=== PATIENT | female | born 1950 | race Caucasian/White ===

== ENCOUNTER → 2016-03-30 | Outpatient (CLI) | payer MEDICARE ==
--- NOTE | 2016-03-30 21:29 | PN ---
DATE OF SERVICE: 03/30/2016 This patient is a 66-year-old lady who has been followed in the sleep center for treatment of obstructive sleep apnea/hypopnea syndrome. Patient is on treatment with CPAP every night. I checked her CPAP unit; usage is 30 out of 30 nights for more than 4 hours. CPAP pressure is 12 cm of water. Patient's weight has increased from 274 pounds during previous titration up to 293 pounds today, and she reports that she has awakenings from sleep about 4 times without nocturia; that has increased over the last year. [place] Sleepiness Scale, though, is 2. MEDICATIONS: 1. Atenolol. 2. Losartan. 3. Simvastatin. 4. Topiramate. 5. ( ) 6. Gretchen. 7. Mucinex. 8. Ibuprofen. During physical exam, patient without distress. VITAL SIGNS: BP 131/66, HR 54, RR 16. Height 5 feet 4 inches. Weight 293. BMI 50. Neck 16-1/4 inches in circumference. Temperature 97.6. Oxygen saturation at room air 97%. HEENT: PERRLA, EOMI. Evaluation of oropharynx showed tongue protrudes midline; low position of soft palate. NECK: Supple. No JVD. Thyroid is not palpable. LUNGS: Clear to percussion and to auscultation. Good air exchange. No wheezing or rhonchi. HEART: S1, S2 regular. No murmurs, gallops or rubs. ABDOMEN: Obese. EXTREMITIES: No clubbing or cyanosis. INDUSTRIAL DESIGNER: Awake, alert, and oriented x3. Cranial nerves 2 to 7 intact. There is no fasciculation or atrophy noted. No focal deficits observed. IMPRESSION: 1. Obstructive sleep apnea/hypopnea syndrome. Patient demonstrated 100% compliance with treatment but has about 4 awakenings from sleep while using her CPAP at the pressure of 12 cm of water. I reviewed results of her previous titration. Patient continued to have mild abnormalities of respiration during the titration. 2. Obesity. Patient's weight has increased by around 20 pounds since previous sleep study. 3. Hypertension. 4. Asthma. 5. Acid reflux. 6. Hyperlipidemia. 7. Migraines better, but still patient has some episodes. 8. Status post total hysterectomy. 9. Status post cholecystectomy. 10. Status post bilateral total knee replacement. PLAN: 1. Repeat CPAP titration for evaluation of patient's breathing, for reevaluation of CPAP pressure at the present time. Patient's weight has increased and she has developed significantly more multiple awakenings from sleep. 2. Losing weight. 3. Sleep hygiene with regular time in bed for at least 8 hours. 4. No driving if feeling any sleepiness. 5. Prescription for all necessary CPAP supplies. Thank you very much for allowing me to participate in the management of your patient. Sincerely, Vasquez Burden MD, PhD, FAASM. Diplomat of [place] Board of Sleep Medicine, Sleep Medicine Board by [place] [employer] Specialities, [place] Board of Internal Medicine
== END | disposition home or self-care (01) ==
LOC: SLEEP 16:33
PROVIDERS: ATTEND Internal Medicine
DX: G47.33 Obstructive sleep apnea (adult) (pediatric) (principal); E66.9 Obesity, unspecified; Z68.43 Body mass index [BMI] 50.0-59.9, adult; I10 Essential (primary) hypertension; J45.909 Unspecified asthma, uncomplicated; K21.9 Gastro-esophageal reflux disease without esophagitis; E78.5 Hyperlipidemia, unspecified; G43.909 Migraine, unspecified, not intractable, without status migrainosus; Z98.890 Other specified postprocedural states; Z96.653 Presence of artificial knee joint, bilateral; Z79.899 Other long term (current) drug therapy

== ENCOUNTER → 2016-08-24 | Outpatient (CLI) | payer MEDICARE ==
--- NOTE | 2016-08-24 18:43 | PN ---
DATE OF SERVICE: 08/24/16 66 year old lady has been followed in the sleep center for treatment of obstructive sleep apnea/hypopnea syndrome. The patient is on treatment with CPAP for close to five years. Last titration done several months ago showed preferable pressure for the patient is 14 cm water. Presently, the patient is still on treatment with CPAP at the pressure of 12 cm water and with this regimen she wakes up several times during the night. I checked her CPAP unit. It showed usage 30 out of 30 nights for more than four hours, Average use is 7.5 hours. [place] sleep scale today is 7. MEDICATIONS: 1. Atenolol. 2. Losartan. 3. Simvastatin. 4. ( ). 5. ( ). 6. Furosemide. 7. Gretchen. 8. Mucinex. 9. Ibuprofen. During physical exam, the patient in no distress. BP 140/64. HR 54, RR 16, weight 269. Temp 98.1, oxygen saturation on room air 97%. Oropharynx moderately to extremely low position of soft palate. NECK: Supple. No JVD. Thyroid is not palpable. LUNGS: Clear to auscultation and percussion. Good air exchange. No wheezing or rhonchi. HEART: S1, S2 regular. No murmurs, no gallops or rubs. ABDOMEN: Obese, soft and nontender. Bowel sounds are present. No organomegaly appreciated. EXTREMITIES: No clubbing, or cyanosis. AIRFLIGHT ATTENDANTS SUPERVISOR: Awake, alert and oriented times three. Cranial nerves 2 thru 7 intact. There is no fasciculation or atrophy noted. No focal deficits observed. IMPRESSION: 1. Obstructive sleep apnea, hypopnea syndrome, the patient demonstrated 100% compliance with treatment benefitting from treatment. 2. Obesity. 3. Hypertension. 4. Asthma. 5. Acid reflux. 6. Hyperlipidemia. 7. Episodes of migraines. 8. Status post total hysterectomy. 9. Status post cholecystectomy. 10. Status bilateral knee replacement. PLAN: 1. I adjusted pressure in the CPAP unit up to 14 cm of water. 2. The patient will continue to use her equipment every night for the whole night. 3. Losing weight. 4. Sleep hygiene with regular time in bed for at least 8 hours. 5. No driving if feels any sleepiness. 6. Follow up visit in six months. At that time, we will check possibility for the patient for the patient to get new CPAP unit. 7. Prescription for all necessary CPAP supplies. Thank you very much for allowing me to participate in the management of your patient. Sincerely, Vasquez Burden MD, PhD, FAASM Diplomat of [place] Board of Sleep Medicine Sleep Medicine Board by [place] Board of Medical Specialties [place] Board of Internal Medicine Side Stapler of [facility] [place] [facility]
== END ==
LOC: SLEEP 16:44
PROVIDERS: ATTEND Internal Medicine
DX: G47.33 Obstructive sleep apnea (adult) (pediatric) (principal); E66.9 Obesity, unspecified; I10 Essential (primary) hypertension; J45.909 Unspecified asthma, uncomplicated; K21.9 Gastro-esophageal reflux disease without esophagitis; E78.5 Hyperlipidemia, unspecified; G43.909 Migraine, unspecified, not intractable, without status migrainosus; Z90.710 Acquired absence of both cervix and uterus; Z90.49 Acquired absence of other specified parts of digestive tract; Z96.653 Presence of artificial knee joint, bilateral; Z79.1 Long term (current) use of non-steroidal anti-inflammatories (NSAID); Z79.899 Other long term (current) drug therapy

== ENCOUNTER 2016-09-13 08:11 | Day surgery (SDC) | payer MEDICARE ==
[2016-09-07 15:57] VITALS: BMI 44.2
[~2016-09-13 08:11] MED LIST: LACTATED RINGERS 1,000 ML IV SCH; LIDOCAINE 1% 20 ML VIAL (10MG/ML) FOR IV START INTRADERMA PRN
[2016-09-13 08:37] VITALS: TEMP 98.2
[2016-09-13] MEDS ORDERED: PROPOFOL 10 MG/ML 20 ML VIAL IV ONE (09:05)
--- NOTE | 2016-09-13 09:19 | P.PCN ---
Date of Procedure: 09/13/16 Preoperative Diagnosis: Postoperative Diagnosis: Procedure(s) Performed: BRIEF HISTORY: Patient is a 66-year-old pleasant white female, scheduled for an elective colonoscopy as a part of evaluation of intermittent rectal bleeding. PROCEDURE PERFORMED: Colonoscopy. PREOPERATIVE DIAGNOSIS: Intermittent rectal bleeding. IV sedation per Anesthesia. PROCEDURE: After informed consent was obtained, the patient, was brought into the endoscopy unit. IV sedation was administered by Anesthesia under continuous monitoring. Digital rectal examination was normal. Initially the Olympus CF- 160 flexible video colonoscope was then inserted in the rectum, gradually advanced into the cecum without any difficulty. Careful examination was performed as the scope was gradually being withdrawn. Ileocecal valve and the appendiceal orifice were visualized and appeared normal. Prep was excellent. Mucosa of the cecum, ascending colon, transverse colon, descending colon, sigmoid colon, and rectum appeared normal. Retroflexion was performed in the rectum and small internal hemorrhoids were seen. The patient tolerated the procedure well. IMPRESSION: Normal-appearing colon from rectum to cecum with no evidence of colorectal neoplasia. Small internal hemorrhoids. RECOMMENDATIONS: Findings of this examination were discussed with the patient as well as her family. She was advised to have a repeat screening colonoscopy in 10 years. Implants: Indications for Procedure: Operative Findings: Description of Procedure:
[2016-09-13 09:26] VITALS: RESP 16
[2016-09-13 09:46] VITALS: BP 135/67; PULSE 55
== END 2016-09-13 09:58 | disposition home or self-care (01) ==
LOC: ORWHC2ENDO 08:11
PROVIDERS: ATTEND Internal Medicine Gastroenterology
DX: K64.8 Other hemorrhoids (principal); Z87.19 Personal history of other diseases of the digestive system; Z86.010 Personal history of colon polyps; I10 Essential (primary) hypertension; E78.5 Hyperlipidemia, unspecified; K21.9 Gastro-esophageal reflux disease without esophagitis; E66.01 Morbid (severe) obesity due to excess calories; Z79.82 Long term (current) use of aspirin; Z79.899 Other long term (current) drug therapy; Z88.2 Allergy status to sulfonamides; Z91.09 Other allergy status, other than to drugs and biological substances
CPT/HCPCS: 45378; J2704

== ENCOUNTER → 2017-02-27 | Outpatient (CLI) | payer MEDICARE ==
--- NOTE | 2017-02-28 10:35 | MM ---
Reason for exam: screening (asymptomatic). Last mammogram was performed 1 year and 1 month ago. History: Patient is postmenopausal. Cyst aspiration of the left breast. Excisional biopsy of the right breast. Took estrogen for 20 years 1 month. Physical Findings: A clinical breast exam by your physician is recommended on an annual basis and results should be correlated with mammographic findings. MG Screening Mammo w CAD Bilateral CC, MLO, and XCCL view(s) were taken. Prior study comparison: January 27, 2016, bilateral MG screening mammo w CAD. January 01, 2015, bilateral MG screening mammo w CAD. There is chronic nodularity bilaterally. No significant changes when compared with prior studies. ASSESSMENT: Benign, BI-RAD 2 RECOMMENDATION: Routine screening mammogram of both breasts in 1 year.
== END | disposition home or self-care (01) ==
LOC: RADMAMWWP 08:13
PROVIDERS: ATTEND Family Medicine
DX: Z12.31 Encounter for screening mammogram for malignant neoplasm of breast (principal)
CPT/HCPCS: 77067

== ENCOUNTER → 2017-03-01 | Outpatient (CLI) | payer MEDICARE ==
--- NOTE | 2017-03-01 11:14 | PN ---
PROGRESS NOTE FOLLOW-UP VISIT DATE OF SERVICE: 03/01/2017 DATE OF SERVICE: A 66-year-old lady has been followed in sleep center for treatment of obstructive sleep apnea-hypopnea syndrome. Patient continued to use her CPAP equipment every night for the whole night. Last time I increased pressure in the machine from 12 cm of water up to 14 cm of water because patient had some awakenings in the middle of the night. The patient still continued to wake up in the middle of the night and feels dryness in her mouth. She is using [employer] pillow mask which included a chin strap. I checked her CPAP unit CPAP pressure is 14 cm of water. Usage is every night more than 4 hours, average 7.42 minutes. Apnea-hypopnea index only 1.5, which is perfect. At the same time, leak from the mask for the last month is significant 44.9 L/minute according to reading from the machine. I checked the fitting of the mask and it looks like that it fits pretty well and this is nasal pillows, which usually not make any leak. Again, this mask has chin strap included subsequently supposed to keep patient's mouth close, but maybe she still opens her mouth during the night even with the chin strap. [place] Sleepiness Scale today is only 2. MEDICATIONS: Atenolol, losartan, simvastatin, furosemide, Gretchen, Mucinex, Ibuprofen, topiramate. PHYSICAL EXAM: During physical exam, patient in no distress. VITAL SIGNS: BP 139/57, HR 54, RR 16, height 5 feet 3 inches, weight 253, BMI 44.8. The patient lost about 16 pounds since previous visit. Temperature 97.7, oxygen saturation room air 94%. HEENT: PERRLA. EOMI. Oropharynx low position of soft palate. NECK: Supple, no JVD. Thyroid is not palpable. LUNGS: Clear to percussion and to auscultation. Good air exchange. No wheezing or rhonchi. HEART: S1, S2 regular. No murmurs, gallops, or rubs. ABDOMEN: Obese. EXTREMITIES: No clubbing or cyanosis. PUBLIC HEALTH SPECIALIST: Awake, alert, and oriented X3. Cranial nerves 2 to 7 intact. There is no fasciculation or atrophy. noted. No focal deficits observed. IMPRESSION: 1. Obstructive sleep apnea-hypopnea syndrome. The patient demonstrated 100% compliance with treatment benefitting from treatment. She feels dryness in her mouth during sleep and sometimes wakes up from sleep. Normal apnea-hypopnea index with CPAP. 2. Hypertension. 3. Obesity. 4. Asthma. 5. Acid reflux. 6. Hyperlipidemia. 7. History of episodes of migraine. 8. Status post total hysterectomy. 9. Status post cholecystectomy. 10.Status post bilateral knee replacement. PLAN: 1. I decreased pressure in the CPAP unit down to 11 cm of water because patient lost weight. 2. She will continue to use CPAP equipment every night for the whole night. 3. Continue losing weight. 4. Sleep hygiene with regular time in bed for at least 8 hours. 5. No driving if feeling any sleepiness. Thank you very much for allowing me to participate in management of your patient. Sincerely, Vasquez Burden MD, PhD, FAASM Diplomat of [place] Board of Medical Specialties [place] Board of Internal Medicine Hot Tar Roofer of [facility] [place] MMODL / LAURIEN: [id number] /
== END | disposition home or self-care (01) ==
LOC: SLEEP 09:51
PROVIDERS: ATTEND Internal Medicine
DX: G47.33 Obstructive sleep apnea (adult) (pediatric) (principal); I10 Essential (primary) hypertension; E66.9 Obesity, unspecified; J45.909 Unspecified asthma, uncomplicated; K21.9 Gastro-esophageal reflux disease without esophagitis; E78.5 Hyperlipidemia, unspecified; Z90.710 Acquired absence of both cervix and uterus; Z79.1 Long term (current) use of non-steroidal anti-inflammatories (NSAID); Z99.89 Dependence on other enabling machines and devices; Z68.41 Body mass index [BMI] 40.0-44.9, adult; Z90.49 Acquired absence of other specified parts of digestive tract; Z79.899 Other long term (current) drug therapy; Z96.653 Presence of artificial knee joint, bilateral; Z86.69 Personal history of other diseases of the nervous system and sense organs

== ENCOUNTER → 2017-08-23 | Outpatient (CLI) | payer MEDICARE ==
--- NOTE | 2017-08-23 12:24 | SFUN ---
SLEEP CENTER FOLLOW UP NOTE DATE OF SERVICE: 08/23/2017 This 67-year-old lady had been followed in sleep center for treatment of obstructive sleep apnea-hypopnea syndrome. About 5 weeks ago patient received her new CPAP unit and she continued to successfully use her CPAP equipment every night without significant problems. No problems related to humidity, mask fitting or pressure. Today is her first visit after she received her new machine. I checked her CPAP unit. CPAP pressure is 14 cm of water. Usage is 100% of the time more than 4 hours. Average usage is 7.5 hours. Leak is 28 L/minute which is acceptable. Apnea-hypopnea index only 0.6, which is totally perfect. MEDICATIONS: Atenolol, losartan, simvastatin, furosemide, Gretchen, Mucinex, ibuprofen, topiramate. PHYSICAL EXAMINATION: During physical exam, patient in no distress. VITAL SIGNS: BP 141/54, HR 48, RR 17, weight 263.4, temp 98.5, oxygen saturation AT room air 98%. HEENT: PERRLA, EOMI. Oropharynx low position of soft palate. NECK: Supple, no JVD. Thyroid is not palpable. LUNGS: Clear to percussion and to auscultation. Good air exchange. No wheezing or rhonchi. HEART: S1, S2 regular. No murmurs, gallops, or rubs. ABDOMEN: Obese. EXTREMITIES: No clubbing or cyanosis. AMERICAN HISTORY TEACHER: Awake, alert, and oriented X3. Cranial nerves 2 to 7 intact. There is no fasciculation or atrophy. noted. No focal deficits observed. IMPRESSION: 1. Obstructive sleep apnea-hypopnea syndrome, on full control with CPAP. Patient demonstrated 100% compliance with treatment benefitting from treatment. 2. Hypertension. 3. Obesity. 4. Asthma. 5. Acid reflux. 6. Hyperlipidemia. 7. History of episodes of migraine. 8. Status post hysterectomy. 9. Status post cholecystectomy. 10.Status post bilateral knee replacement. PLAN: 1. Patient will continue to use her CPAP equipment tonight for the whole night. 2. Prescription for all necessary CPAP supplies including mask, tube, filters. 3. I will explain to the patient how to adjust humidity in the new CPAP unit if it will be necessary for her. 4. Losing weight. 5. Followup visit in about 10 months or earlier if patient has any problems. Thank you very much for allowing me to participate in management of your patient. Sincerely, Vasquez Burden MD, PhD, FAASM Diplomat of [place] Board of Medical Specialties [place] Board of Internal Medicine C[employer]acer [facility] [place] LOLITA / GENET: [id number] /
== END | disposition home or self-care (01) ==
LOC: SLEEP 11:17
PROVIDERS: ATTEND Internal Medicine
DX: G47.33 Obstructive sleep apnea (adult) (pediatric) (principal); I10 Essential (primary) hypertension; E66.9 Obesity, unspecified; J45.909 Unspecified asthma, uncomplicated; K21.9 Gastro-esophageal reflux disease without esophagitis; Z90.49 Acquired absence of other specified parts of digestive tract; Z96.653 Presence of artificial knee joint, bilateral; Z90.710 Acquired absence of both cervix and uterus; Z86.69 Personal history of other diseases of the nervous system and sense organs; Z99.89 Dependence on other enabling machines and devices; Z79.899 Other long term (current) drug therapy; Z79.1 Long term (current) use of non-steroidal anti-inflammatories (NSAID)

== ENCOUNTER → 2018-03-26 | Outpatient (CLI) | payer MEDICARE ==
--- NOTE | 2018-03-27 09:46 | MM ---
Reason for exam: screening (asymptomatic). Last mammogram was performed 1 year and 1 month ago. History: Patient is postmenopausal. Cyst aspiration of the left breast. Excisional biopsy of the right breast. Took estrogen for 20 years 1 month. Physical Findings: A clinical breast exam by your physician is recommended on an annual basis and results should be correlated with mammographic findings. MG 3D Screening Mammo W/Cad Bilateral CC and MLO view(s) were taken. Prior study comparison: February 27, 2017, bilateral MG screening mammo w CAD. January 27, 2016, bilateral MG screening mammo w CAD. There are scattered fibroglandular densities. There is chronic nodularity in the left breast. No significant changes when compared with prior studies. ASSESSMENT: Benign, BI-RAD 2 RECOMMENDATION: Routine screening mammogram of both breasts in 1 year.
== END | disposition home or self-care (01) ==
LOC: RADMAMWWP 07:33
PROVIDERS: ATTEND Family Medicine
DX: Z12.31 Encounter for screening mammogram for malignant neoplasm of breast (principal)
CPT/HCPCS: 77063; 77067

== ENCOUNTER → 2018-07-25 | Outpatient (CLI) | payer MEDICARE ==
--- NOTE | 2018-07-25 18:16 | PN ---
PROGRESS NOTE DATE OF SERVICE: 07/25/2018 This patient is a 68-year-old lady who has been followed in Sleep Center for treatment of obstructive sleep apnea-hypopnea syndrome. Patient continues to use CPAP equipment every night for the whole night without any significant problems related to mask fitting, pressure or humidification. [place] Sleepiness Scale today is 1. I checked her CPAP unit. CPAP pressure is 14 cm of water. Usage is 100% of nights for more than 4 hours with average usage 7.8 hours. Leak is 14 L/minute, which is borderline. Apnea-hypopnea index is 0.6, which is absolutely perfect. MEDICATIONS: 1. Losartan. 2. Atenolol. 3. Simvastatin. 4. Furosemide. 5. Gretchen. 6. Ibuprofen. 7. Topiramate. PHYSICAL EXAMINATION: GENERAL: A pleasant patient in no distress. VITAL SIGNS: BP 158/69, HR 56, RR 16, height 5 feet 2-1/2 inches, weight 280 pounds, which is 17 pounds more than during her previous visit. Body mass index 50.3, oxygen saturation at room air 95%. HEENT: PERRLA, EOMI. Evaluation of oropharynx showed tongue protrudes midline. Low position of soft palate. Mallampati III to IV. NECK: Supple. No JVD. Thyroid is not palpable. LUNGS: Clear to percussion and to auscultation. Good air exchange. No wheezing or rhonchi. HEART: S1, S2 regular. No murmurs, gallops or rubs. ABDOMEN: Obese. EXTREMITIES: No clubbing or cyanosis. BOARDING HOUSE COOK: Awake, alert, and oriented X3. Cranial nerves 2 to 7 intact. There is no fasciculation or atrophy. noted. No focal deficits observed. IMPRESSION: 1. Obstructive sleep apnea-hypopnea syndrome, fully controlled with CPAP. Patient demonstrated 100% compliance with treatment, benefitting from treatment. 2. Hypertension. 3. Obesity. Patient's weight has increased compared with her previous visit by 17 pounds. 4. Asthma. 5. Acid reflux. 6. Hyperlipidemia. 7. History of episodes of migraine. No recent episodes. 8. Status post hysterectomy. 9. Status post cholecystectomy. 10.Status post bilateral knee replacement. PLAN: 1. Patient will continue to use CPAP equipment every night. 2. Losing weight. 3. Sleep hygiene with regular time bed for at least 8 hours. 4. No driving if feeling any sleepiness. 5. Prescriptions for all necessary CPAP supplies, including mask, tube, filters. Thank you very much for allowing me to participate in the management of your patient. Sincerely, Vasquez Burden MD, PhD, FAASM Diplomat of [place] Board of Medical Specialties [place] Board of Internal Medicine Boarding Specialist of [facility] [place] MMODL / LAURIEN: [id number] /
== END | disposition home or self-care (01) ==
LOC: SLEEP 16:54
PROVIDERS: ATTEND Internal Medicine
DX: G47.33 Obstructive sleep apnea (adult) (pediatric) (principal); E66.9 Obesity, unspecified; I10 Essential (primary) hypertension; J45.909 Unspecified asthma, uncomplicated; K21.9 Gastro-esophageal reflux disease without esophagitis; E78.5 Hyperlipidemia, unspecified; Z99.89 Dependence on other enabling machines and devices; Z79.899 Other long term (current) drug therapy; Z79.1 Long term (current) use of non-steroidal anti-inflammatories (NSAID); Z86.69 Personal history of other diseases of the nervous system and sense organs; Z90.710 Acquired absence of both cervix and uterus; Z90.49 Acquired absence of other specified parts of digestive tract; Z96.653 Presence of artificial knee joint, bilateral; Z68.43 Body mass index [BMI] 50.0-59.9, adult

== ENCOUNTER → 2019-04-15 | Outpatient (CLI) | payer MEDICARE ==
--- NOTE | 2019-04-16 10:53 | MM ---
Reason for exam: screening (asymptomatic). Last mammogram was performed 1 year and 1 month ago. History: Patient is postmenopausal. Cyst aspiration of the left breast. Excisional biopsy of the right breast. Took estrogen for 20 years 1 month. Physical Findings: A clinical breast exam by your physician is recommended on an annual basis and results should be correlated with mammographic findings. MG 3D Screening Mammo W/Cad Bilateral CC, MLO, and XCCL view(s) were taken. Prior study comparison: March 26, 2018, bilateral MG 3d screening mammo w/cad. February 27, 2017, bilateral MG screening mammo w CAD. There are scattered fibroglandular densities. No suspicious abnormality. Stable left intramammary lymph nodes. No significant changes when compared with prior studies. ASSESSMENT: Negative, BI-RAD 1 RECOMMENDATION: Routine screening mammogram of both breasts in 1 year.
== END | disposition home or self-care (01) ==
LOC: RADMAMWWP 07:10
PROVIDERS: ATTEND Family Medicine
DX: Z12.31 Encounter for screening mammogram for malignant neoplasm of breast (principal)
CPT/HCPCS: 77063; 77067

== ENCOUNTER → 2020-03-01 | Outpatient (CLI) | payer MEDICARE ==
[2020-03-01 09:18] LABS: Basophils % (A) 1 %; Eosinophils # (A) 0.3 k/uL (0-0.7); Eosinophils % (A) 4 %; HCT 41.1 % (34.0-46.0); HGB 13.2 gm/dL (11.4-16.0); Lymphocytes # (A) 2.4 k/uL (1.0-4.8); Lymphocytes % (A) 35 %; MCH 29.8 pg (25.0-35.0); MCHC 32.1 g/dL (31.0-37.0); MCV 92.7 fL (80.0-100.0); Monocytes # (A) 0.3 k/uL (0-1.0); Monocytes % (A) 5 %; Neutrophils # (A) 3.7 k/uL (1.3-7.7); Neutrophils % (A) 54 %; Platelet Count 210 k/uL (150-450); RBC 4.43 m/uL (3.80-5.40); RDW 12.7 % (11.5-15.5); WBC 6.8 k/uL (3.8-10.6)
[2020-03-01 15:38] LABS: African American GFR (CKD) 101.7 (60.0-200.0); Albumin 4.3 g/dL (3.80-4.90); Albumin/Globulin Ratio 2.15 (1.60-3.17); Anion Gap 7.3 mmol/L (4.00-12.00); Calcium 9.2 mg/dL (8.7-10.3); Carbon Dioxide 28.7 mmol/L (21.6-31.8); Chol/HDL Ratio 3.1; LDL Cholesterol,Calculated 105.4 mg/dL (0.0-131.0); Non-African American GFR(CKD) 87.8 (60.0-200.0); Potassium 4.3 mmol/L (3.5-5.5); Total Bilirubin 0.5 mg/dL (0.2-1.2); Total Protein 6.3 g/dL (6.2-8.2); VLDL Calculation 20.6 mg/dL (5.00-40.00)
[2020-03-01 18:46] LABS: Hemoglobin A1C 6.3 % (4.0-6.0)
== END | disposition home or self-care (01) ==
LOC: LABWHC1 08:38
PROVIDERS: ATTEND Family Medicine
DX: E78.5 Hyperlipidemia, unspecified (principal); I10 Essential (primary) hypertension; R73.9 Hyperglycemia, unspecified
CPT/HCPCS: 36415; 80053; 80061; 82550; 83036; 85025

== ENCOUNTER → 2020-05-06 | Outpatient (CLI) | payer MEDICARE ==
--- NOTE | 2020-05-07 11:14 | MM ---
Reason for exam: screening (asymptomatic). Last mammogram was performed 1 year and 1 month ago. History: Patient is postmenopausal. Cyst aspiration of the left breast. Excisional biopsy of the right breast. Took estrogen for 20 years 1 month. Physical Findings: A clinical breast exam by your physician is recommended on an annual basis and results should be correlated with mammographic findings. MG 3D Screening Mammo W/Cad Bilateral CC, MLO, and XCCL view(s) were taken. Prior study comparison: April 15, 2019, bilateral MG 3d screening mammo w/cad. March 26, 2018, bilateral MG 3d screening mammo w/cad. There are scattered fibroglandular densities. There is no discrete abnormality. No significant changes when compared with prior studies. ASSESSMENT: Negative, BI-RAD 1 RECOMMENDATION: Routine screening mammogram of both breasts in 1 year.
== END | disposition home or self-care (01) ==
LOC: RADMAMWWP 09:44
PROVIDERS: ATTEND Family Medicine
DX: Z12.31 Encounter for screening mammogram for malignant neoplasm of breast (principal); Z78.0 Asymptomatic menopausal state
CPT/HCPCS: 77063; 77067

== ENCOUNTER → 2020-09-03 | Outpatient (CLI) | payer MEDICARE ==
[2020-09-03 15:53] LABS: Basophils # (A) 0.05 X 10*3/uL (0.00-0.10); Basophils % (A) 0.6 %; Eosinophils # (A) 0.35 X 10*3/uL (0.04-0.35); Eosinophils % (A) 4.4 %; HCT 41.1 % (37.2-46.3); HGB 12.5 g/dL (12.0-15.0); Lymphocytes # (A) 2.51 X 10*3/uL (0.90-5.00); Lymphocytes % (A) 31.5 %; MCH 29.6 pg (27.0-32.0); MCHC 30.4 g/dL (32.0-37.0); MCV 97.4 fL (80.0-97.0); Mean Platelet Volume 12.6 fL (9.5-12.2); Monocytes # (A) 0.52 X 10*3/uL (0.20-1.00); Monocytes % (A) 6.5 %; Neutrophils # (A) 4.51 X 10*3/uL (1.80-7.70); Neutrophils % (A) 56.6 %; Platelet Count 219 X 10*3/uL (140-440); RBC 4.22 X 10*6/uL (4.10-5.20); RDW 13.3 % (11.5-14.5); WBC 7.97 X 10*3/uL (4.50-10.00)
[2020-09-03 21:11] LABS: % Iron Saturation 16.71 (12.00-45.00); ALT 25 U/L (8-44); AST 23 U/L (13-35); Albumin/Globulin Ratio 1.95 (1.60-3.17); Alkaline Phosphatase 84 U/L (41-126); BUN/Creat Ratio 27.14 Ratio (12.00-20.00); Calcium 9.1 mg/dL (8.7-10.3); Carbon Dioxide 26.4 mmol/L (21.6-31.8); Chloride 109 mmol/L (96-109); Globulin 2.2 g/dL (1.6-3.3); Glucose 116 mg/dL (70-110); Iron 62 ug/dL (50-170); Magnesium 1.8 mg/dL (1.5-2.4); Non-African American GFR(CKD) 87.2 (60.0-200.0); Potassium 4.6 mmol/L (3.5-5.5); Sodium 145 mmol/L (135-145); Total Bilirubin 0.3 mg/dL (0.3-1.2); Total Iron Binding Capacity 371 ug/dL (228-460); Total Protein 6.5 g/dL (6.2-8.2)
[2020-09-03 21:18] LABS: Ferritin 31.3 ng/mL (10.0-291.0)
[2020-09-03 21:32] LABS: Folate, Serum >24.0 ng/mL
== END | disposition home or self-care (01) ==
LOC: LABWHC1 08:12
PROVIDERS: ATTEND Family Medicine
DX: G25.81 Restless legs syndrome (principal)
CPT/HCPCS: 36415; 80053; 82607; 82728; 82746; 83540; 83550; 83735; 85025

== ENCOUNTER → 2020-10-28 | Outpatient (CLI) | payer MEDICARE ==
--- NOTE | 2020-10-28 17:05 | SFUN ---
SLEEP CENTER FOLLOW UP NOTE DATE OF SERVICE: 10/28/2020 This 70-year-old lady has been followed in Sleep Center for treatment of obstructive sleep apnea-hypopnea syndrome. The last time I saw the patient was 2 years ago, and then she did not come because of COVID. She has continued to use her CPAP equipment every night for the whole night. Sometimes she wakes up with a dry mouth and sometimes her mask may move during the night. [place] Sleepiness Scale today is 4, which is normal. I checked her CPAP unit. Pressure is 14 cm of water. Usage is 30/30 nights for more than 4 hours with average usage 7.7 hours per night. Leak is 14 L/minute. Apnea- hypopnea index is only 0.7. RAMP started from 7 cm of water, but the patient feels that it is not enough pressure for her while she is starting the machine. RAMP time is 5 minutes. MEDICATIONS: 1. Albuterol. 2. Aspirin 81 mg. 3. Atenolol 25 mg once a day. 4. Celecoxib 200 mg once a day. 5. Losartan 50 mg once a day. 6. Metformin 1000 mg twice a day. 7. Omeprazole 40 mg once a day. 8. Simvastatin 10 mg once a day. 9. Topiramate 50 mg twice a day. PHYSICAL EXAMINATION: GENERAL: Pleasant patient without distress. VITAL SIGNS: BP 128/76, HR 91, RR 15, height 5 feet 3 inches, weight 290. The patient's weight increased by 10 pounds since previous visit. Body mass index 51.3. Temperature 97.9, oxygen saturation at room air 94%. HEENT: PERRLA, EOMI, evaluation of oropharynx showed tongue protrudes midline. Low position of soft palate; Mallampati III to IV. NECK: Supple, no JVD. Thyroid is not palpable. LUNGS: Clear to percussion and to auscultation. Good air exchange. No wheezing or rhonchi. HEART: S1, S2 regular. No murmurs, gallops, or rubs. ABDOMEN: Obese. EXTREMITIES: No clubbing or cyanosis. MONEY ORDER CLERK: Awake, alert, and oriented X3. Cranial nerves 2 to 7 intact. There is no fasciculation or atrophy. noted. No focal deficits observed. IMPRESSION: 1. Some dryness in the mouth during sleep. Obstructive sleep apnea-hypopnea syndrome. Patient demonstrated 100% compliance with treatment. Normal apnea-hypopnea index on treatment with CPAP. 2. Hypertension. 3. Obesity. Patient's weight increased by 10 pounds. Morbid obesity; BMI 51.3. 4. Asthma. 5. Acid reflux. 6. Hyperlipidemia. 7. History of migraine. Recently occasional episodes. 8. Status post hysterectomy. 9. Status post cholecystectomy. 10.Status post bilateral knee replacement. PLAN: 1. Use the chinstrap to prevent opening the mouth. Prescription for all necessary supplies have been signed and faxed. 2. Patient will continue to use PAP equipment every night for the whole night. 3. Sleep hygiene with regular time in bed for at least 7-1/2 to 8 hours. 4. Precautions related to driving. No driving if feeling sleepiness. 5. I will maintain all necessary prescription for PAP supplies including mask, tube, filters. 6. Watching weight. 7. Follow-up visit in 6 months or earlier if patient has any problems. Thank you very much for allowing me to participate in the management of your patient. Sincerely, Vasquez Burden MD, PhD, FAASM Diplomat of [place] Board of Medical Specialties Sleep Medicine Board of [place] Board of Internal Medicine Hardware Engineer of [facility] [place] MMODL / IJN: [id number] /
== END | disposition home or self-care (01) ==
LOC: SLEEP 11:40
PROVIDERS: ATTEND Internal Medicine
DX: G47.33 Obstructive sleep apnea (adult) (pediatric) (principal); I10 Essential (primary) hypertension; E66.9 Obesity, unspecified; J45.909 Unspecified asthma, uncomplicated; K21.9 Gastro-esophageal reflux disease without esophagitis; E78.5 Hyperlipidemia, unspecified; G43.909 Migraine, unspecified, not intractable, without status migrainosus; Z90.710 Acquired absence of both cervix and uterus; Z96.653 Presence of artificial knee joint, bilateral; Z68.43 Body mass index [BMI] 50.0-59.9, adult

== ENCOUNTER → 2021-05-05 | Outpatient (CLI) | payer MEDICARE ==
--- NOTE | 2021-05-05 15:59 | SFUN ---
SLEEP CENTER FOLLOW UP NOTE DATE OF SERVICE: 05/05/2021 This 71-year-old lady has been followed in Sleep Center for treatment of obstructive sleep apnea-hypopnea syndrome. The patient continues to use her CPAP equipment every night for the whole night. She changes her position during sleep, turning from one side to another side and also she sometimes sleeps on her back. [place] Sleepiness Scale today is 3, which is in normal range. I checked her CPAP unit. Pressure is 14 cm of water. Usage is 100% of nights for more than 4 hours, average 7.5 hours per night. Leak is 23 L/minute, which is borderline. Apnea-hypopnea index is only 0.8, which is absolutely perfect. MEDICATIONS: 1. Atenolol 25 mg once a day. 2. Metformin 1000 mg once a day. 3. Celecoxib 200 mg once a day. 4. Omeprazole 40 mg once a day. 5. Losartan 50 mg once a day. 6. Simvastatin 10 mg once a day. 7. 150 mg once a day. 8. Zyrtec 1 tablet once a day as needed. 9. Aspirin 81 mg once a day. 10.Excedrin for migraines as needed. PHYSICAL EXAMINATION: GENERAL: Pleasant patient in no distress. VITAL SIGNS: BP 123/81, HR 78, RR 18, weight 291.2 pounds, which is about the same as during the previous visit. Height 5 feet 3 inches, temperature 97.0, oxygen saturation at room air 96%. HEENT: PERRLA, EOMI, evaluation of oropharynx showed tongue protrudes midline. Low position of soft palate; Mallampati III to IV. NECK: Supple, no JVD. Thyroid is not palpable. LUNGS: Clear to percussion and to auscultation. Good air exchange. No wheezing or rhonchi. HEART: S1, S2 regular. No murmurs, gallops, or rubs. ABDOMEN: Obese. EXTREMITIES: No clubbing or cyanosis. LINUX PROGRAMMER: Awake, alert, and oriented X3. Cranial nerves 2 to 7 intact. There is no fasciculation or atrophy. noted. No focal deficits observed. IMPRESSION: 1. Obstructive sleep apnea-hypopnea syndrome. Patient demonstrated great compliance with treatment, benefitting from treatment. Normal respiration on CPAP. 2. Hypertension. 3. Obesity. 4. Asthma. 5. Acid reflux. 6. Hyperlipidemia. 7. History of migraine. No recent episodes. One episode after booster dose for COVID- 19 vaccination. 8. Status post hysterectomy. 9. Status post cholecystectomy. 10.Status post bilateral knee replacement. 11.Status post bilateral cataract surgery in 2020. PLAN: 1. Patient will continue to use PAP equipment every night for the whole night. 2. Sleep hygiene with regular time in bed for at least 7-1/2 to 8 hours. 3. Precautions related to driving. No driving if feeling sleepiness. 4. I will maintain all necessary prescription for PAP supplies, including mask, tube, filters. 5. Watching weight. 6. Follow-up visit in 6 months or earlier if patient has any problems. Thank you very much for allowing me to participate in the management of your patient. Sincerely, Vasquez Burden MD, PhD, FAASM Diplomat of [place] [employer] Sleep Medicine Board of [place] [employer] Chief Cruiser [facility] [place] MMODL / LAURIEN: [id number] /
== END | disposition home or self-care (01) ==
LOC: SLEEP 11:43
PROVIDERS: ATTEND Internal Medicine
DX: G47.33 Obstructive sleep apnea (adult) (pediatric) (principal); I10 Essential (primary) hypertension; E66.9 Obesity, unspecified; J45.909 Unspecified asthma, uncomplicated; K21.9 Gastro-esophageal reflux disease without esophagitis; E78.5 Hyperlipidemia, unspecified; Z86.69 Personal history of other diseases of the nervous system and sense organs; Z90.49 Acquired absence of other specified parts of digestive tract; Z98.890 Other specified postprocedural states; Z96.653 Presence of artificial knee joint, bilateral

== ENCOUNTER → 2021-07-13 | Outpatient (CLI) | payer MEDICARE ==
--- NOTE | 2021-07-14 12:01 | MM ---
Reason for Exam: Screening (asymptomatic). Last mammogram was performed 1 year(s) and 3 month(s) ago. Patient History: Menarche at age 11. First Full-Term at age 24. Left ovary removed at age 34. Right ovary removed at age 34. Hysterectomy at age 34. Postmenopausal. Estrogen for 20 years, 1 month. Cyst Aspiration on the Left side. Excisional Biopsy on the Right side. Risk Values: Krystyna 5 year model risk: 2.3%. NCI Lifetime model risk: 6.0%. Prior Study Comparison: 03/26/2018 Bilateral Screening Mammogram, [facility]. 04/15/2019 Bilateral Screening Mammogram, [facility]. 05/06/2020 Bilateral Screening Mammogram, [facility]. Tissue Density: There are scattered fibroglandular densities. Findings: Analyzed By CAD. Stable tiny chronic nodularity upper outer aspect left breast. A few scattered benign appearing punctate calcifications bilaterally are redemonstrated. There is no suspicious group of microcalcifications or new suspicious mass in either breast. Overall Assessment: Benign, BI-RAD 2 Management: Screening Mammogram of both breasts in 1 year. A clinical breast exam by your physician is recommended on an annual basis and results should be correlated with mammographic findings. Electronically signed and approved by: Kavin Tuttle M.D.
== END | disposition home or self-care (01) ==
LOC: RADMAMWWP 07:40
PROVIDERS: ATTEND Family Medicine
DX: Z12.31 Encounter for screening mammogram for malignant neoplasm of breast (principal)
CPT/HCPCS: 77063; 77067

== ENCOUNTER 2021-08-29 08:38 | Emergency (ER) | payer MEDICARE ==
--- NOTE | 2021-08-29 09:44 | CT ---
EXAMINATION TYPE: CT chest wo con CT DLP: 809.5 mGycm, Automated exposure control for dose reduction was used. DATE OF EXAM: 08/29/2021 9:34 AM COMPARISON: None CLINICAL INDICATION:Female, 71 years old with history of fall, trauma, sob; TECHNIQUE: Multiple axial images were obtained through the chest. Contrast used: none. Oral contrast used: none. FINDINGS: LUNGS/ PLEURA: Respiratory motion artifact is present. No evidence for focal consolidation, pneumotho rax or pleural effusion. AIRWAY: Patent and unremarkable.. HEART: Mildly enlarged for size with mild atherosclerosis of the arterial vasculature and aortic valv e leaflet calcifications. MEDIASTINUM: No gross evidence of adenopathy. VASCULATURE: No aortic aneurysm. The pulmonary trunk is dilated up to 35 mm. MUSCULOSKELETAL: No evidence for acute fracture. There is multilevel disc degeneration changes seen t hroughout the spine. SOFT TISSUES/LYMPH NODES: Unremarkable. LOWER NECK: No significant findings. UPPER ABDOMEN: Fatty hypertrophy changes of the pancreatic parenchyma. Gallbladder surgically absent. IMPRESSION: 1. No evidence for acute process within the chest. 2. Pulmonary hypertension suggested. 3. No evidence for fracture. 4. Mild cardiomegaly. 5. Mild Aortic valve leaflet calcifications and coronary artery atherosclerosis.
--- NOTE | 2021-08-29 10:00 | ED ---
SOB HPI - General Chief Complaint: Shortness of Breath Stated Complaint: Fell on chest,SOB Time Seen by Provider: 08/29/21 08:51 Source: patient, RN notes reviewed Mode of arrival: ambulatory Limitations: no limitations - History of Present Illness Initial Comments: This a 71-year-old female presents emergency Department with chief complaint of fall, rib pain. Patient states that she fell Sunday night. Patient states that she fell on the ground into her ribs. Patient states she was able to finally get up off the ground denies any head injury no loss conscious denies any neck pain. Patient complains of rib pain bilaterally states it hurts with any sort of movement, deep inspiration. She states that the pain takes her breath away. She denies palpitations no nausea vomiting no abdominal pain. Patient does have bruising over her breast. - Related Data Home Medications Medication Instructions Recorded Confirmed Aspirin [Adult Low Dose Aspirin EC] 162 mg PO HS 09/07/16 09/13/16 Calcium Carbonate [Calcium] 600 mg PO BID 09/07/16 09/13/16 Cetirizine HCl [Zyrtec] 10 mg PO 1000 09/07/16 09/13/16 Cholecalciferol [Vitamin D3] 10,000 unit PO DAILY 09/07/16 09/13/16 Fish Oil/Dha/Epa [Fish Oil 1,200 2 each PO QAM 09/07/16 09/13/16 mg Fish Oil] Furosemide [Lasix] 40 mg PO DAILY PRN 09/07/16 09/13/16 Ibuprofen 800 mg PO QAM PRN 09/07/16 09/13/16 Ketotifen Fumarate [Zaditor] 1 drop BOTH EYES DAILY PRN 09/07/16 09/13/16 Losartan [Cozaar] 50 mg PO W/SUPPER 09/07/16 09/13/16 Magnesium Oxide [Mag-Ox] 250 mg PO BID 09/07/16 09/13/16 Multivit-Min/FA/Lycopen/Lutein 1 each PO QAM 09/07/16 09/13/16 [Centrum Silver Tablet] Omeprazole 40 mg PO QAM 09/07/16 09/13/16 Risedronate Sodium [Actonel] 150 mg PO QMONTH 09/07/16 09/13/16 Rizatriptan Benzoate [Maxalt] 10 mg PO DAILY PRN 09/07/16 09/13/16 Simvastatin [Zocor] 10 mg PO W/SUPPER 09/07/16 09/13/16 Topiramate 50 mg PO QAM 09/07/16 09/13/16 Topiramate 100 mg PO 2200 09/07/16 09/13/16 Ubidecarenone [Co Q-10] 100 mg PO QAM 09/07/16 09/13/16 atenoloL [Tenormin] 25 mg PO DAILY 09/07/16 09/13/16 flaxseed oiL [[place]-3 Flaxseed Oil] 1,200 mg PO QAM 09/07/16 09/13/16 Allergies Allergy/AdvReac Type Severity Reaction Status Date / Time acetaminophen [From Lortab] Allergy "fuzzy,out Verified 08/29/21 08:47 of focus" hydrocodone [From Lortab] Allergy "fuzzy,out Verified 08/29/21 08:47 of focus" Sulfa (Sulfonamide Allergy "fuzzy, Verified 08/29/21 08:47 Antibiotics) out of focus" bandaids Allergy peels skin Uncoded 08/29/21 08:47 off Review of Systems ROS Statement: Those systems with pertinent positive or pertinent negative responses have been documented in the HPI. ROS Other: All systems not noted in ROS Statement are negative. Past Medical History Past Medical History: Asthma, GERD/Reflux, Hyperlipidemia, Hypertension, Rheumatoid Arthritis (RA) Additional Past Medical History / Comment(s): hypoglycemia Past Surgical History: Cholecystectomy, Hysterectomy, Joint Replacement, Tonsillectomy Past Psychological History: No Psychological Hx Reported Smoking Status: Former smoker Past Alcohol Use History: None Reported Past Drug Use History: None Reported General Exam Limitations: no limitations General appearance: alert, in no apparent distress Head exam: Present: atraumatic, normocephalic, normal inspection Eye exam: Present: normal appearance, PERRL, EOMI. Absent: scleral icterus, conjunctival injection, periorbital swelling ENT exam: Present: normal exam, normal oropharynx, mucous membranes moist Neck exam: Present: normal inspection, full ROM. Absent: tenderness, meningismus, lymphadenopathy Respiratory exam: Present: normal lung sounds bilaterally, chest wall tenderness (Ecchymosis noted). Absent: respiratory distress, wheezes, rales, rhonchi, stridor Cardiovascular Exam: Present: regular rate, normal rhythm, normal heart sounds. Absent: systolic murmur, diastolic murmur, rubs, gallop, clicks GI/Abdominal exam: Present: soft, normal bowel sounds. Absent: distended, tenderness, guarding, rebound, rigid Extremities exam: Present: normal inspection, full ROM, normal capillary refill. Absent: tenderness, pedal edema, joint swelling, calf tenderness Back exam: Present: full ROM, paraspinal tenderness. Absent: CVA tenderness (R), CVA tenderness (L), vertebral tenderness Neurological exam: Present: alert, oriented X3, CN II-XII intact, reflexes normal. Absent: motor sensory deficit Course Vital Signs 08/29/21 08:41 Temperature 98.4 F Pulse Rate 105 H Respiratory 24 Rate Blood Pressure 148/90 O2 Sat by Pulse 98 Oximetry Medical Decision Making - Medical Decision Making CT was performed to rule out pneumothorax, diarrhea fractures. Patient CT is negative. Patient will be discharged with Tylenol codeine for pain control. Vitals are stable. Return parameters discussed. Disposition Clinical Impression: Contusion, chest wall, Bilateral contusion of ribs Disposition: HOME SELF-CARE Condition: Stable Instructions (If sedation given, give patient instructions): Rib Contusion (ED) Additional Instructions: Please return to the Emergency Department if symptoms worsen or any other concerns. Is patient prescribed a controlled substance at d/c from ED?: No Referrals: Jose Ortega MD [Primary Care Provider] - 1-2 days Time of Disposition: 10:26
[2021-08-29] MEDS ORDERED: ACET/COD 300 MG/30 MG STARTER PACK 6 TAB BTL PO STA (10:24)
[2021-08-29 10:34] VITALS: BP 136/86; PULSE 61; RESP 18; TEMP 98
== END 2021-08-29 10:33 | disposition home or self-care (01) ==
LOC: EC 08:38
DX: S20.213A Contusion of bilateral front wall of thorax, initial encounter (principal); K21.9 Gastro-esophageal reflux disease without esophagitis; I10 Essential (primary) hypertension; J45.909 Unspecified asthma, uncomplicated; Z79.899 Other long term (current) drug therapy; Z88.8 Allergy status to other drugs, medicaments and biological substances; Z88.2 Allergy status to sulfonamides; Z91.018 Allergy to other foods; Z88.5 Allergy status to narcotic agent; Z88.6 Allergy status to analgesic agent; Z79.82 Long term (current) use of aspirin; W19.XXXA Unspecified fall, initial encounter
CPT/HCPCS: 71250; 93005; 99284

== ENCOUNTER 2021-11-10 05:56 | Day surgery (SDC) | payer MEDICARE ==
[2021-11-08 15:33] VITALS: BMI 46.5
[~2021-11-10 05:56] MED LIST changes: +LIDOCAINE 1% (10MG/ML) FOR IV START INTRADERMA PRN; -LIDOCAINE 1% 20 ML VIAL (10MG/ML) FOR IV START INTRADERMA PRN; +SODIUM CHLORIDE 0.9% 1,000 ML IV SCH
[2021-11-10] MEDS ORDERED: APIXABAN 5 MG TAB PO SCH (06:11)
[2021-11-10] MEDS ORDERED: AMIODARONE 200 MG TAB PO STA (06:13)
[2021-11-10] MEDS ORDERED: METOPROLOL TARTRATE 50 MG TAB PO STA (06:13)
[2021-11-10] MEDS ORDERED: SODIUM CHLORIDE 0.9% 500 ML IV ONE (06:15)
[2021-11-10 06:17] VITALS: TEMP 97.6
[2021-11-10 06:35] LABS: Glucose,Whole Blood 108 mg/dL (70-110)
[2021-11-10 07:14] LABS: African American GFR (CKD) >90 (>60 ml/min/1.73 sqM); Anion Gap 11 mmol/L; Blood Urea Nitrogen 16 mg/dL (7-17); Calcium 9.3 mg/dL (8.4-10.2); Carbon Dioxide 23 mmol/L (22-30); Chloride 107 mmol/L (98-107); Glucose 118 mg/dL (74-99); Non-African American GFR(CKD) 86 (>60 ml/min/1.73 sqM); Potassium 4.1 mmol/L (3.5-5.1); Sodium 141 mmol/L (137-145)
[2021-11-10] MEDS ORDERED: PROPOFOL 10 MG/ML 20 ML VIAL IV ONE (07:29)
[2021-11-10 08:36] VITALS: RESP 16
[2021-11-10 09:17] VITALS: BP 121/62; PULSE 69
--- NOTE | 2021-11-10 19:25 | PCN ---
PROCEDURE NOTE ELECTRICAL CARDIOVERSION REPORT: DATE OF SERVICE: 11/10/2021 PROCEDURE: Electrical cardioversion. INDICATION: Recent onset, but persistent atrial fibrillation with controlled ventricular rate. CLINICAL INFORMATION: Mrs. Gillian Cox is a 71-year-old lady with history of hypertension, hyperlipidemia, obesity, obstructive sleep apnea, who recently had a pulmonary embolism and developed atrial fibrillation. After adequate anticoagulation for more than 4 weeks and amiodarone for nearly 3 to 4 weeks, she was brought in for electrical cardioversion after due discussion regarding risks, benefits, and options. PROCEDURE NOTE: Under the influence of [id number] and intravenous anesthetic agent with the attendance of the anesthesiologist, two shocks were given to the chest wall with anterior and posterior patches. Both of these were 200 joules. The patient did not convert to sinus rhythm and remained in atrial fibrillation with a controlled ventricular rate and remained hemodynamically stable, neurologically intact. This was unsuccessful electrical cardioversion after 2 attempts. Results were discussed with the patient and her son and she will be discharged today and I will see her in the office on November 17 as planned. MMODL / IJN: [id number] /
== END 2021-11-10 09:30 | disposition home or self-care (01) ==
LOC: CATHCVL 05:56
PROVIDERS: ATTEND Internal Medicine Interventional Cardiology
DX: I48.19 Other persistent atrial fibrillation (principal); Z86.711 Personal history of pulmonary embolism; G47.33 Obstructive sleep apnea (adult) (pediatric); I10 Essential (primary) hypertension; Z20.822 Contact with and (suspected) exposure to COVID-19; Z72.0 Tobacco use; E78.00 Pure hypercholesterolemia, unspecified; Z79.01 Long term (current) use of anticoagulants; Z79.84 Long term (current) use of oral hypoglycemic drugs; Z88.5 Allergy status to narcotic agent; Z88.2 Allergy status to sulfonamides; Z91.048 Other nonmedicinal substance allergy status; E66.9 Obesity, unspecified; Z68.42 Body mass index [BMI] 45.0-49.9, adult
CPT/HCPCS: 92960; 80048; 87635; J2704

== ENCOUNTER → 2021-11-23 | Outpatient (CLI) | payer MEDICARE ==
--- NOTE | 2021-11-23 10:55 | P.PN ---
Subjective DATE: 11/23/2021 FOLLOW UP VISIT. Patient with obstructive sleep apnea hypopnea syndrome return to sleep center for follow-up visit. Information from previous visit have been reviewed. Patient fell in August 2021. For some period of time she was not able to sleep in bed because of pain into her ribs. At that time she also was diagnosed with atrial fibrillation and Pulmonary embolism according to patient. Presently patient to again started to sleep in bed and is using PAP equipment every night for the whole night, getting PAP supplies in time, except she still did not get chinstrap which I recommended to use 6 months ago. She is using nasal pillow mask and referred that she has a leak.. [place] sleepiness scale is 2, which is normal. I checked PAP unit. PAP unit pressure 14 cm H2O. Usage is 100 % for more then 4 hours, average 7.7 hours per night. Leak is high 48 l/m. Apnea Hypopnea Index is 1.2, which is perfect. MEDICATIONS:1. Amiodarone 300 mg once a day 2. Eliquis 5 mg twice a day 3. Metformin 1000 mg once a day 4. Metoprolol 50 mg 3 tablets once a day 5. Omeprazole 40 mg once a day 6. Simvastatin 10 mg once a day 7. Topiramate 50 mg twice a day 8. Risedronate 50 mg once a day During physical exam: GENERAL: A pleasant patient without any distress. VITAL SIGNS: BP 132/78, HR 62, RR 16, weight 279.4, temperature 96.9, oxygen saturation at room air 98 % . HEENT: PERRLA, EOMI.low position of soft palate, Mallapati 3-4 . NECK: Supple. No JVD. LUNGS: Clear to percussion and to auscultation. Good air exchange. No wheezing or rhonchi. HEART: S1, S2 regular. ABDOMEN: Soft and nontender. Obese EXTREMITIES: No clubbing or cyanosis. MUTUAL FUNDS AGENT: Awake, alert, and oriented x3. No focal deficit. Impressions: 1. Obstructive sleep apnea-hypopnea syndrome. Patient demonstrated great compliance with treatment, benefiting from treatment. 2. Obesity. 3. Hypertension. 4. History of atrrial fibrillation. 5. History of pulmonary embolism several months ago according to patient. 6. Status post fall in August 2021. 7. History of asthma. 8. Acid reflux. 9. Hyperlipidemia. 10. Status post hysterectomy. 11. Status post bilateral knee replacement. 12. Status post cholecystectomy 13 status post bilateral cataract surgery. Plan: 1. Continue using PAP equipment every night for the whole night, patient should use chinstrap additionally. 2. To change air filter at least 1-2 times per month. 3. PAP unit should stay lower then position of the head. 4. Advised patient to remove all remaining water from humidifier canister daily and make it dry after each usage. Refill canister with fresh distilled water before each usage. 5. Sleep hygiene with regular time in bed for at least 8 hours. 6. Precautions related to driving. No driving if feel any sleepiness. 7. I will maintain prescription for PAP supplies including mask, tube, filters. Prescription for chinstrap again was written. 8. Follow up visit in 6 months or earlier if patient has any problems. 9. Losing weight. Thank you very much for allowing me to participate in the management of your patient. Vasquez Burden MD, PhD, FAASM. Diplomat of [place] [employer], Sleep Medicine Board by [place] [employer] Director of [facility] [place]
== END ==
LOC: SLEEP 09:55
PROVIDERS: ATTEND Internal Medicine
DX: G47.33 Obstructive sleep apnea (adult) (pediatric) (principal); Z87.891 Personal history of nicotine dependence; Z91.048 Other nonmedicinal substance allergy status; Z88.2 Allergy status to sulfonamides; Z91.040 Latex allergy status; Z88.5 Allergy status to narcotic agent; I10 Essential (primary) hypertension; Z86.79 Personal history of other diseases of the circulatory system; Z86.711 Personal history of pulmonary embolism; Z91.81 History of falling; K21.9 Gastro-esophageal reflux disease without esophagitis; E78.5 Hyperlipidemia, unspecified; Z87.09 Personal history of other diseases of the respiratory system; Z90.711 Acquired absence of uterus with remaining cervical stump; Z96.653 Presence of artificial knee joint, bilateral; Z90.49 Acquired absence of other specified parts of digestive tract; Z98.890 Other specified postprocedural states
CPT/HCPCS: 99212

== ENCOUNTER 2022-02-14 10:08 | Day surgery (SDC) | payer MEDICARE ==
[~2022-02-14 10:08] MED LIST changes: -LIDOCAINE 1% (10MG/ML) FOR IV START INTRADERMA PRN
[2022-02-14] MEDS ORDERED: SODIUM CHLORIDE 0.9% 1,000 ML IV ONE (10:16)
[2022-02-14 10:37] LABS: Glucose,Whole Blood 112 mg/dL (70-110)
[2022-02-14 10:48] LABS: Basophils % (A) 1 %; Eosinophils # (A) 0.1 k/uL (0-0.7); Eosinophils % (A) 2 %; HCT 43.7 % (34.0-46.0); HGB 13.9 gm/dL (11.4-16.0); Hypochromasia Slight; Lymphocytes # (A) 2.2 k/uL (1.0-4.8); Lymphocytes % (A) 28 %; MCH 30.3 pg (25.0-35.0); MCHC 31.7 g/dL (31.0-37.0); MCV 95.6 fL (80.0-100.0); Mean Platelet Volume 8.1; Monocytes # (A) 0.3 k/uL (0-1.0); Monocytes % (A) 4 %; Neutrophils # (A) 5.1 k/uL (1.3-7.7); Neutrophils % (A) 65 %; Platelet Count 225 k/uL (150-450); RBC 4.58 m/uL (3.80-5.40); RDW 13.1 % (11.5-15.5); WBC 7.8 k/uL (3.8-10.6)
[2022-02-14 11:28] LABS: African American GFR (CKD) >90 (>60 ml/min/1.73 sqM); Anion Gap 8 mmol/L; Blood Urea Nitrogen 16 mg/dL (7-17); Calcium 8.7 mg/dL (8.4-10.2); Carbon Dioxide 26 mmol/L (22-30); Chloride 109 mmol/L (98-107); Glucose 111 mg/dL (74-99); Non-African American GFR(CKD) 85 (>60 ml/min/1.73 sqM); Potassium 4.1 mmol/L (3.5-5.1); Sodium 143 mmol/L (137-145)
[2022-02-14] MEDS ORDERED: HEPARIN SODIUM,PORCINE 5,000 UNIT/ML 1 ML VIAL ONE (12:19)
[2022-02-14] MEDS ORDERED: PROPOFOL 10 MG/ML 20 ML VIAL IV ONE (12:19)
[2022-02-14] MEDS ORDERED: fentaNYL (PF) 50 MCG/ML 2 ML AMP ONE (12:19)
[2022-02-14] MEDS ORDERED: SUCCINYLCHOLINE CHLORIDE 200 MG/10 ML VIAL IV ONE (12:19)
[2022-02-14] MEDS ORDERED: LIDOCAINE 2% INJ 20 MG/ML (2 ML VIAL) ONE (12:19)
[2022-02-14] MEDS ORDERED: PHENYLEPHRINE-0.9% NACL SYG 1,000 MCG/10 ML SYRINGE ONE (12:19)
[2022-02-14] MEDS ORDERED: MIDAZOLAM 2 MG/2 ML VIAL ONE (12:19)
[2022-02-14] MEDS ORDERED: HEPARIN SODIUM,PORCINE 10,000 UNIT/ML 1 ML VIAL ONE (12:19)
[2022-02-14] MEDS ORDERED: PROTAMINE SULFATE 10 MG/ML 5 ML VIAL IV ONE (12:19)
[2022-02-14] MEDS ORDERED: HEPARIN SOD,PORK IN 0.45% NACL 25,000 UNIT in 0.45% NACL 1 250ML.BAG IV ONE (13:05)
[2022-02-14] MEDS ORDERED: LIDOCAINE 1% INJ 10MG/ML (30 ML VIAL-PF) SQ ONE (13:07)
[2022-02-14] MEDS ORDERED: IOPAMIDOL-370 100ML BTL INJ ONE (15:09)
[2022-02-14] MEDS ORDERED: ACETAMINOPHEN TAB 325 MG TAB PO PRN (15:27)
--- NOTE | 2022-02-14 15:40 | P.HPCAR ---
History of Present Illness This is Dr. Burton dictating an H/P on this patient The patient was interviewed and examined IMPRESSION / ASSESSMENT: Persistent atrial fibrillation, symptomatic History of pulmonary embolism and DVT Symptomatic with shortness of breath on exertion despite complete resolution and treatment for pulmonary embolism Failed electrical cardioversion thereafter Failed amiodarone 50 Obstructive sleep apnea using a CPAP mask Type 2 diabetes on medical treatment Increased BMI PLAN: Atrial fibrillation with PVI and linear ablation of the left atrium Continue anticoagulation HPI Patient remains symptomatic despite atrial fibrillation with a controlled ventricular response She complains of shortness of breath on exertion She has been anticoagulation No syncope recently ROS: No fever chills or rigors, no cough, phlegm or expectoration, no nausea, vomiting or diarrhea, no hematuria, dysuria, no musculoskeletal complaints, no strokes or seizures, no skin lesions. EXAMINATION: Afebrile 98.2F, pulse rate irregular in the 60s Respirations normal Blood pressure 162/81 mmHg Breath sounds are reduced bilaterally Heart sounds are soft soft ejection systolic murmur Abdomen is soft Extremities warm no edema REVIEW OF LABS, ECG & MEDICAL DATA Normal white count 7.8 thousand, hematocrit 43.7, platelet count 225,000 Sodium 143, potassium 4.1 BUN 16 and creatinine 0.7 TSH 2.1 Physical Exam Vitals: Vital Signs Temp Pulse Resp BP Pulse Ox 02/14/22 10:32 98.2 F 62 18 162/81 95 Intake and Output 02/14/22 02/14/22 02/14/22 06:59 14:59 22:59 Intake Total 531 Balance 531 Intake: IV 531 Other: Weight 125.1 kg Past Medical History Past Medical History: Atrial Fibrillation, Asthma, Diabetes Mellitus, GERD/Reflux, Hyperlipidemia, Hypertension, Osteoarthritis (OA), Pulmonary Embolus (PE), Rheumatoid Arthritis (RA) Additional Past Medical History / Comment(s): IRREGULAR HEARTBEAT, PE in September, migraines, see Dr. Burton H & P History of Any Multi-Drug Resistant Organisms: None Reported Past Surgical History: Cholecystectomy, Heart Catheterization, Hysterectomy, Joint Replacement, Tonsillectomy Additional Past Surgical History / Comment(s): liza knee replacements Past Anesthesia/Blood Transfusion Reactions: Previous Problems w/ Anesthesia, Motion Sickness, Postoperative Nausea & Vomiting (PONV) Additional Past Anesthesia/Blood Transfusion Reaction / Comment(s): passed out first time got up after one of her knee replacements Smoking Status: Former smoker - Past Family History Mother History Unknown: Yes Family Medical History: Cancer Additional Family Medical History / Comment(s): Mom from cancer and alzheimers Physical Examination Vital Signs Temp Pulse Resp BP Pulse Ox 02/14/22 10:32 98.2 F 62 18 162/81 95 Intake and Output 02/14/22 02/14/22 02/14/22 06:59 14:59 22:59 Intake Total 531 Balance 531 Intake: IV 531 Other: Weight 125.1 kg Results 02/14/22 10:25 02/14/22 10:25 CBC 02/14/22 Range/Units 10:25 WBC 7.8 (3.8-10.6) k/uL RBC 4.58 (3.80-5.40) m/uL Hgb 13.9 (11.4-16.0) gm/dL Hct 43.7 (34.0-46.0) % Plt Count 225 (150-450) k/uL Comprehensive Metabolic Panel 02/14/22 Range/Units 10:25 Sodium 143 (137-145) mmol/L Potassium 4.1 (3.5-5.1) mmol/L Chloride 109 H (98-107) mmol/L Carbon Dioxide 26 (22-30) mmol/L BUN 16 (7-17) mg/dL Creatinine 0.72 (0.52-1.04) mg/dL Glucose 111 H (74-99) mg/dL Calcium 8.7 (8.4-10.2) mg/dL Current Medications Generic Name Dose Route Start Last Admin Trade Name Freq PRN Reason Stop Dose Admin Acetaminophen 650 mg 02/14/22 15:27 Acetaminophen Tab 325 Mg Tab PO 03/16/22 15:28 Q6HR PRN Mild Pain (Scale 1 to 3) Amiodarone HCl 100 mg 02/15/22 09:00 Amiodarone 200 Mg Tab PO 03/17/22 09:01 DAILY DONAVON Acetaminophen 1,000 mg/ IV 100 mls @ 400 mls/hr 02/14/22 15:27 Solution IVPB 02/14/22 15:41 ONCE ONE Metoprolol Tartrate 50 mg 02/14/22 21:00 Metoprolol Tartrate 50 Mg Tab PO 03/16/22 21:01 BID DONAVON Non-Formulary Medication 5 mg 02/14/22 21:00 Apixaban [Eliquis Starter Pack (For Vte)] PO 03/16/22 21:01 BID DONAVON Non-Formulary Medication 200 mg 02/15/22 09:00 Celecoxib PO 03/17/22 09:01 DAILY DONAVON Non-Formulary Medication 1,000 mg 02/15/22 09:00 Metformin Hcl [Metformin Hcl] PO 03/17/22 09:01 DAILY DONAVON Non-Formulary Medication 40 mg 02/15/22 09:00 Omeprazole [Omeprazole] PO 03/17/22 09:01 DAILY DONAVON Non-Formulary Medication 10 mg 02/15/22 09:00 Simvastatin PO 03/17/22 09:01 DAILY DONAVON Non-Formulary Medication 50 mg 02/14/22 21:00 Topiramate [Topiramate] PO 03/16/22 21:01 BID DONAVON Sodium Chloride 12 ml 02/14/22 15:27 Sodium Chloride 0.9% Flush 10 Ml Syringe IV 03/16/22 15:28 Q12HR PRN Line Flush Intake and Output 02/14/22 02/14/22 02/14/22 06:59 14:59 22:59 Intake Total 531 Balance 531 Intake: IV 531 Other: Weight 125.1 kg Patient Weight 02/15/22 06:59 Weight 125.1 kg 02/14/22 10:25 02/14/22 10:25
--- NOTE | 2022-02-14 15:44 | P.EPPROC ---
- EP Procedure Note Electrophysiology Procedure Note: PROCEDURE A. fib ablation / PVI and linear ablation of the left atrial roof DIAGNOSIS Persistent Atrial fibrillation, symptomatic, refractory to therapy RESULT No left atrial appendage mass seen on intracardiac echo Successful A. 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 Procedure performed under general anesthesia Esophagus was intubated. Esophageal temperature monitoring with circa catheter. Esophageal deflection with an endoscope to avoid hypothermia of the esophagus. After initial muscle relaxant use, muscle relaxants were not given thereafter in order to assess phrenic nerve during procedure. Patient prepped and draped as per protocol Cryo ablation-set up with standard preparation of the cryoablation tools done. Femoral Venous access obtained on the right and left groins and sheaths placed Diagnostic catheters for the high right atrium, phrenic nerve stimulation and pacing, His bundle, coronary sinus placed Intracardiac echo catheter placed. Long sheath placed in the right atrium Left and right transseptal catheterization performed under intracardiac echo guidance. Intravenous heparin with aCT above 300 Later, catheter positioning and balloon positioning in the left atrium and pulmonary veins, under intracardiac echo guidance Diagnostic EP study with coronary sinus pacing and recording Baseline measurements: Sinus cycle length 1376, NH interval 181, QRS 93 and daily for 36 AH 95 and HV 48 ms Transseptal catheterization performed RA pressure 20/13/17 LA pressure 28/16/20 Transseptal catheterization performed with standard sheath. The cryoablation sheath was then placed with an over the wire exchange without any acute complications. The cryoablation balloon was placed in the office of each pulmonary vein and all 4 pulmonary veins were isolated. IV dye was injected to confirm occlusion. Goal: achieve complete occlusion of the pulmonary vein, achieve -30 degrees C at 30 seconds and achieve -40 degrees C at 60 seconds and a time to effect of less than 60 seconds. If not, the balloon was repositioned to obtain this result After completion of Cryoblation with durations from 180-240 seconds, entrance block was confirmed with the Attain circular catheter in a roving fashion around the antrum of the pulmonary veins Phrenic nerve pacing was performed from the SVC, right innominate vein area and diaphragm voltage was monitored. Diaphragmatic contractions were also monitored manually for strength of contraction. At the end of the procedure the Achieve catheter was once again used to check for entrance block Phrenic nerve stimulation was performed to confirm diaphragmatic stimulation the end of the procedure Linear ablation was performed along the left atrial roof with contiguous cryoablation lesions, overlapping with ablation of the local electrograms Cine fluoroscopy was performed at the very end of the procedure to confirm movement of both diaphragms with inspiration and expiration At the end of the procedure the patient was extubated Venous sheaths were removed and hemostasis assured with a closure device PROCEDURES PERFORMED Diagnostic EP study CS pacing and recording Left and right transseptal catheterization Catheter the mapping of the tachycardia Intracardiac echocardiography Pulmonary vein isolation with transseptal and comprehensive EPS, 44015 Left atrial roof line, +[id number] Electrical cardioversion with a synchronized shock across the chest [id number]
--- NOTE | 2022-02-14 15:45 | P.PRLE ---
RE: Gillian Cox Dear Jose French underwent successful A. fib ablation with pulmonary vein isolation and left atrial ablation She required electrical cardioversion at the end of the procedure At this time I would continue anticoagulation and reduce the dose of metoprolol to 50 mrem twice daily Amiodarone may be discontinued in 2 months Thank you for entrusting me with the care of the patient Warm regards Sincerely Jonathan Burton
[2022-02-14 16:16] LABS: Glucose,Whole Blood 115 mg/dL (70-110)
[2022-02-14] MEDS ORDERED: ACETAMINOPHEN IV (For NPO) 1,000 MG in EMPTY BAG 1 BAG IVPB ONE (17:00)
[2022-02-14 17:39] LABS: Glucose,Whole Blood 122 mg/dL (70-110)
[2022-02-14 20:20] LABS: Glucose,Whole Blood 149 mg/dL (70-110)
[2022-02-14] MEDS: APIXABAN 5 MG TAB PO SCH (21:22)
[2022-02-14] MEDS: TOPIRAMATE 25 MG TAB PO SCH (21:22)
[2022-02-14] MEDS: METOPROLOL TARTRATE 50 MG TAB PO SCH ×2 (21:22→22:13)
[2022-02-14 21:28] LABS: Glucose,Whole Blood 164 mg/dL (70-110)
[2022-02-15 05:44] VITALS: TEMP 98
[2022-02-15 06:08] LABS: Glucose,Whole Blood 109 mg/dL (70-110)
[2022-02-15] MEDS ORDERED: PANTOPRAZOLE 40 MG TABLET PO SCH (07:30)
[2022-02-15] MEDS: TOPIRAMATE 25 MG TAB PO SCH (08:32)
[2022-02-15] MEDS: APIXABAN 5 MG TAB PO SCH (08:33)
[2022-02-15 08:36] VITALS: RESP 16
[2022-02-15] MEDS ORDERED: ATORVASTATIN 10 MG TAB PO SCH (09:00)
[2022-02-15] MEDS ORDERED: MELOXICAM 7.5 MG TAB PO SCH (09:00)
[2022-02-15] MEDS ORDERED: AMIODARONE 100 MG TAB PO SCH (09:00)
[2022-02-15] MEDS ORDERED: METOPROLOL TARTRATE 12.5 MG TAB PO SCH (09:00)
[2022-02-15] MEDS ORDERED: NYSTATIN 100,000 UNIT/GM POWD 15 GM TOPICAL SCH (09:00)
[2022-02-15 11:43] LABS: Glucose,Whole Blood 150 mg/dL (70-110)
[2022-02-15 12:36] VITALS: BP 131/62; PULSE 57
[2022-02-15 16:25] LABS: Glucose,Whole Blood 94 mg/dL (70-110)
[2022-02-17] MEDS ORDERED: metFORMIN 500 MG TAB PO SCH (07:30)
== END 2022-02-15 17:04 | disposition home health service (06) ==
LOC: CATHEP 10:08 → 3SCARD 14:58 → CATHEP 02-15 17:04
PROVIDERS: ATTEND Internal Medicine Clinical Cardiac Electrophysiology
DX: I48.19 Other persistent atrial fibrillation (principal); Z86.711 Personal history of pulmonary embolism; Z86.718 Personal history of other venous thrombosis and embolism; G47.33 Obstructive sleep apnea (adult) (pediatric); Z99.89 Dependence on other enabling machines and devices; E11.9 Type 2 diabetes mellitus without complications; Z79.01 Long term (current) use of anticoagulants; J45.909 Unspecified asthma, uncomplicated; K21.9 Gastro-esophageal reflux disease without esophagitis; I10 Essential (primary) hypertension; E78.5 Hyperlipidemia, unspecified; M19.90 Unspecified osteoarthritis, unspecified site; M06.9 Rheumatoid arthritis, unspecified; G43.909 Migraine, unspecified, not intractable, without status migrainosus; Z90.49 Acquired absence of other specified parts of digestive tract; Z98.890 Other specified postprocedural states; Z96.653 Presence of artificial knee joint, bilateral; Z87.891 Personal history of nicotine dependence; Z81.8 Family history of other mental and behavioral disorders; Z79.1 Long term (current) use of non-steroidal anti-inflammatories (NSAID); Z79.810 Long term (current) use of selective estrogen receptor modulators (SERMs); Z79.899 Other long term (current) drug therapy; Z79.84 Long term (current) use of oral hypoglycemic drugs; Z79.83 Long term (current) use of bisphosphonates; Z79.02 Long term (current) use of antithrombotics/antiplatelets
CPT/HCPCS: 92960; 93656; 93657; 80048; 84443; 85025; C1894 ×2; C1769 ×4; C1760; C1730 ×2; C1759; C1893; C1733; C1766; J2001; J0131; Q9967; J1644

== ENCOUNTER → 2022-06-07 | Outpatient (CLI) | payer MEDICARE ==
--- NOTE | 2022-06-07 11:38 | P.PN ---
Subjective DATE: 06/07/2022 FOLLOW UP VISIT. Patient with obstructive sleep apnea hypopnea syndrome return to sleep center for follow-up visit. Information from previous visit have been reviewed. Patient is using PAP equipment every night for the whole night, getting PAP supplies in time. Patient sometimes has awakenings from sleep. The patient does not have significant problems with the mask, PAP unit and humidification. [place] sleepiness scale is 2, which is normal. I checked information from PAP unit. PAP unit pressure 14 cm H2O. Usage is 100 % for more then 4 hours, average 7.8 hours per night. Leak is 24 l/m, which is in acceptable range. Apnea Hypopnea Index is 0.8, which is normal. MEDICATIONS:1. Metformin 1000 mg once a day 2. Eliquis 5 mg twice a day 3. Omeprazole 40 mg once a day 4. Simvastatin 10 mg once a day 5. Topiramate 50 mg twice a day During physical exam: GENERAL: A pleasant patient without any distress. VITAL SIGNS: BP 160/77, HR 65, RR 12 , weight 276.4, temperature 98.3, oxygen saturation at room air 98 % . HEENT: PERRLA, EOMI.low position of soft palate, Mallapati 3-4 . NECK: Supple. No JVD. LUNGS: Clear to percussion and to auscultation. Good air exchange. No wheezing or rhonchi. HEART: S1, S2 regular. ABDOMEN: Soft and nontender Obese] EXTREMITIES: No clubbing or cyanosis. SECURITY REPRESENTATIVE: Awake, alert, and oriented x3. No focal deficit. Impressions: 1. Obstructive sleep apnea-hypopnea syndrome. Patient demonstrated great compliance with treatment, benefiting from treatment. 2. Obesity, BMI 48.8, patient lost 30 pounds since previous visit. 3. Hypertension. 4. History of pulmonary embolism. 5. History of lateral fibrillation. 6. History of asthma. 7. Acid reflux. 8. Hyperlipidemia. 9. Status post bilateral knee replacement. 10. Status post hysterectomy. 11 Status post bilateral cataract surgery. 12 Status post cholecystectomy. I changed regimen in CPAP unit to AutoPAP with range the pressure 6-17 cm of water. Plan: 1. Continue using PAP equipment every night for the whole night. 2. To change air filter at least 1-2 times per month. 3. PAP unit should stay lower then position of the head. 4. Advised patient to remove all remaining water from humidifier canister daily and make it dry after each usage. Refill canister with fresh distilled water before each usage. 5. Sleep hygiene with regular time in bed for at least 8 hours. 6. Precautions related to driving. No driving if feel any sleepiness. 7. I will maintain prescription for PAP supplies including mask, tube, filters. 8. .Watching and losing weight. 9. Follow up visit in 3 months or earlier if patient has any problems. Thank you very much for allowing me to participate in the management of your patient. Vasquez Burden MD, PhD, FAASM. Diplomat of [place] [employer], Sleep Medicine Board by [employer] Industrial Psychologist of [facility] [place]
== END ==
LOC: SLEEP 09:59
PROVIDERS: ATTEND Internal Medicine
DX: G47.33 Obstructive sleep apnea (adult) (pediatric) (principal); E66.9 Obesity, unspecified; E78.5 Hyperlipidemia, unspecified; I10 Essential (primary) hypertension; J45.909 Unspecified asthma, uncomplicated; K21.9 Gastro-esophageal reflux disease without esophagitis; R63.4 Abnormal weight loss; Z68.42 Body mass index [BMI] 45.0-49.9, adult; Z79.01 Long term (current) use of anticoagulants; Z79.84 Long term (current) use of oral hypoglycemic drugs; Z79.899 Other long term (current) drug therapy; Z86.711 Personal history of pulmonary embolism; Z90.49 Acquired absence of other specified parts of digestive tract; Z90.710 Acquired absence of both cervix and uterus; Z96.653 Presence of artificial knee joint, bilateral; Z98.890 Other specified postprocedural states; Z99.89 Dependence on other enabling machines and devices; Z79.85 Long-term (current) use of injectable non-insulin antidiabetic drugs; Z91.040 Latex allergy status; Z91.048 Other nonmedicinal substance allergy status; Z88.5 Allergy status to narcotic agent; Z88.2 Allergy status to sulfonamides; Z87.891 Personal history of nicotine dependence
CPT/HCPCS: 99212

== ENCOUNTER → 2022-08-04 | Outpatient (CLI) | payer MEDICARE ==
--- NOTE | 2022-08-07 10:28 | MM ---
Reason for Exam: Screening (asymptomatic). Last screening mammogram was performed 12 month(s) ago. Patient History: Menarche at age 11. First Full-Term at age 24. Left ovary removed at age 34. Right ovary removed at age 34. Hysterectomy at age 34. Postmenopausal. Estrogen for 20 years, 1 month. Cyst Aspiration on the Left side. Excisional Biopsy on the Right side. Risk Values: Krystyna 5 year model risk: 2.3%. NCI Lifetime model risk: 5.7%. Prior Study Comparison: 04/15/2019 Bilateral Screening Mammogram, [facility]. 05/06/2020 Bilateral Screening Mammogram, [facility]. 07/13/2021 Bilateral MG 3D screening mammo w/cad, [facility]. Tissue Density: There are scattered fibroglandular densities. Findings: Analyzed By CAD. Pattern appears symmetrical and stable. No significant interval change is evident. Some chronic nodularity is within the left breast. No suspicious groups of microcalcifications, spiculated or lobular masses, architectural distortion or other secondary signs of malignancy are mammographically apparent. Overall Assessment: Benign, BI-RAD 2 Management: Screening Mammogram of both breasts in 1 year. A negative mammogram report should not preclude additional follow up of suspicious palpable abnormalities. Patient should continue monthly self breast exam. A clinical breast exam by your physician is recommended on an annual basis and results should be correlated with mammographic findings. Electronically signed and approved by: Florentin Calloway D.O. Radiologis
== END | disposition home or self-care (01) ==
LOC: RADMAMWWP 07:43
PROVIDERS: ATTEND Family Medicine
DX: Z12.31 Encounter for screening mammogram for malignant neoplasm of breast (principal); Z78.0 Asymptomatic menopausal state
CPT/HCPCS: 77063; 77067

== ENCOUNTER → 2022-09-13 | Outpatient (CLI) | payer MEDICARE ==
--- NOTE | 2022-09-13 11:21 | P.PN ---
Subjective DATE: 09/13/2022 FOLLOW UP VISIT. Patient with obstructive sleep apnea hypopnea syndrome return to sleep center for follow-up visit. Information from previous visit have been reviewed. Patient is using PAP equipment every night for the whole night, getting PAP supplies in time. The patient does not have significant problems with the mask, and humidification. He feels that it is not enough pressure over air at the first movement when she starting to use CPAP equipment. [place] sleepiness scale is 3. I checked information from PAP unit. PAP unit pressure 6-17, average 10.5 cm H2O. Usage is to 100 % for more then 4 hours, average 7.7 hours per night. Leak is 0 l/m, which is perfect. Apnea Hypopnea Index is at 1.1, which is normal. MEDICATIONS:1. Omeprazole 40 mg once a day 2. Metformin 1000 mg once a day 3. Eliquis 5 mg twice a day 4. Simvastatin 10 mg once a day 5. Topiramate 50 mg twice a day 6. [] 7. [] 8. [] During physical exam: GENERAL: A pleasant patient without any distress. VITAL SIGNS: BP 175/80, HR 52, RR 18 , weight to 72.2, temperature 98.2, oxygen saturation at room air 96 % . HEENT: PERRLA, EOMI.low position of soft palate, Mallapati 3-4 . NECK: Supple. No JVD. LUNGS: Clear to percussion and to auscultation. Good air exchange. No wheezing or rhonchi. HEART: S1, S2 regular. ABDOMEN: Soft and nontender. Obese EXTREMITIES: No clubbing or cyanosis. HIDE GRADER: Awake, alert, and oriented x3. No focal deficit. Impressions: 1. Obstructive sleep apnea-hypopnea syndrome. Patient demonstrated great compli ance with treatment, benefiting from treatment. 2. Obesity, patient lost 4 pounds comparing to the previous visit. 3. Hypertension. 4. History of pulmonary embolism. 5. History of atrial fibrillation. 6. History of asthma. 7. Acid reflux. 8. Hyperlipidemia. 9. Status post bilateral knee replacement. 10. Status post hysterectomy. 11. Status post bilateral cataract surgery. 12. Status post cholecystectomy. I changed range of the pressure to 8-17 centimeters of water, REM starting at 8 cm of water. Plan: 1. Continue using PAP equipment every night for the whole night. 2. To change air filter at least 1-2 times per month. 3. PAP unit should stay lower then position of the head. 4. Advised patient to remove all remaining water from humidifier canister daily and make it dry after each usage. Refill canister with fresh distilled water before each usage. 5. Sleep hygiene with regular time in bed for at least 8 hours. 6. Precautions related to driving. No driving if feel any sleepiness. 7. I will maintain prescription for PAP supplies including mask, tube, filters. 8. Watching and losing weight. 9. Follow up visit in 6 months or earlier if patient has any problems. Thank you very much for allowing me to participate in the management of your patient. Vasquez Burden MD, PhD, FAASM. Diplomat of [place] [employer], Sleep Medicine Board by [employer] [employer] Visual C Developer of [facility] [place]
== END ==
LOC: 3 N SLEEP 10:40
PROVIDERS: ATTEND Internal Medicine
DX: G47.33 Obstructive sleep apnea (adult) (pediatric) (principal); E66.9 Obesity, unspecified; I10 Essential (primary) hypertension; K21.9 Gastro-esophageal reflux disease without esophagitis; J45.909 Unspecified asthma, uncomplicated; K91.5 Postcholecystectomy syndrome; E78.5 Hyperlipidemia, unspecified; Z90.710 Acquired absence of both cervix and uterus; Z96.653 Presence of artificial knee joint, bilateral; Z98.41 Cataract extraction status, right eye; Z98.42 Cataract extraction status, left eye; Z99.89 Dependence on other enabling machines and devices; Z79.899 Other long term (current) drug therapy; Z79.01 Long term (current) use of anticoagulants; Z91.048 Other nonmedicinal substance allergy status; Z91.040 Latex allergy status; Z88.5 Allergy status to narcotic agent; Z88.2 Allergy status to sulfonamides; Z79.51 Long term (current) use of inhaled steroids; Z87.891 Personal history of nicotine dependence
CPT/HCPCS: 99212

== ENCOUNTER → 2023-03-14 | Outpatient (CLI) | payer MEDICARE ==
--- NOTE | 2023-03-14 12:15 | P.PN ---
Subjective DATE: 03/14/2023 FOLLOW UP VISIT. Patient with obstructive sleep apnea hypopnea syndrome return to sleep center for follow-up visit. Information from previous visit have been reviewed. Presently patient has constant atrial fibrillation. Patient is using PAP equipment every night for the whole night, getting PAP supplies in time. The patient does not have significant problems with the mask, PAP unit and humidification. [place] sleepiness scale is 2. I checked information from PAP unit. PAP unit pressure 8-17, average 10.9 cm H2O. Usage is 100 % for more then 4 hours, average 7.9 hours per night. Leak is 0 l/m, which is in acceptable range. Apnea Hypopnea Index is 1.0, which is normal. MEDICATIONS:1. Metformin 1000 mg once a day 2. Eliquis 5 mg twice a day 3. Metoprolol 25 mg twice a day 4. Amiodarone 200 mg twice a day 5. Omeprazole 40 mg once a day 6. Simvastatin 10 mg once a day 7. Losartan 25 mg once a day 8. Excedrin as needed During physical exam: GENERAL: A pleasant patient without any distress. VITAL SIGNS: BP 146/84, HR 77, RR 18 , weight 274.0, temperature 98.1, oxygen saturation at room air 96 % . HEENT: PERRLA, EOMI.low position of soft palate, Mallapati 3-4 . NECK: Supple. No JVD. LUNGS: Clear to percussion and to auscultation. Good air exchange. No wheezing or rhonchi. HEART: S1, S2 irregularly irregular. ABDOMEN: Soft and nontender. Obese EXTREMITIES: No clubbing or cyanosis. CORROSION CONTROL FITTER: Awake, alert, and oriented x3. No focal deficit. Impressions: 1. Obstructive sleep apnea-hypopnea syndrome. Patient demonstrated great compliance with treatment, benefiting from treatment. Normal respiration on CPAP according to reading from CPAP. 2. Obesity. 3. Atrial fibrillation. 4. Hypertension. 5. History of pulmonary embolism. 6. History of asthma. 7. Acid reflux. 8. Migraine. 9. Hyperlipidemia. 10. Status post bilateral knee replacement. 11. Status post hysterectomy. 12. Status post bilateral cataract surgery. Plan: 1. Continue using PAP equipment every night for the whole night. 2. To change air filter at least 1-2 times per month. 3. PAP unit should stay lower then position of the head. 4. Advised patient to remove all remaining water from humidifier canister daily and make it dry after each usage. Refill canister with fresh distilled water before each usage. 5. Sleep hygiene with regular time in bed for at least 8 hours. 6. Precautions related to driving. No driving if feel any sleepiness. 7. I will maintain prescription for PAP supplies including mask, tube, filters. 8. Follow up visit in 4 months or earlier if patient has any problems. 9. Watching and losing weight. Thank you very much for allowing me to participate in the management of your patient. Vasquez Burden MD, PhD, FAASM. Diplomat of [employer], Sleep Medicine Board by [employer] Universal Grinder Set Up Operator of [facility] [place]
== END ==
LOC: 3 N SLEEP 10:51
PROVIDERS: ATTEND Internal Medicine
DX: G47.33 Obstructive sleep apnea (adult) (pediatric) (principal); E66.9 Obesity, unspecified; I48.91 Unspecified atrial fibrillation; I10 Essential (primary) hypertension; J45.909 Unspecified asthma, uncomplicated; G43.909 Migraine, unspecified, not intractable, without status migrainosus; K21.9 Gastro-esophageal reflux disease without esophagitis; E78.5 Hyperlipidemia, unspecified; Z90.710 Acquired absence of both cervix and uterus; Z98.890 Other specified postprocedural states; Z86.711 Personal history of pulmonary embolism; Z99.89 Dependence on other enabling machines and devices; Z91.040 Latex allergy status; Z91.048 Other nonmedicinal substance allergy status; Z88.5 Allergy status to narcotic agent; Z88.2 Allergy status to sulfonamides; Z79.82 Long term (current) use of aspirin; Z87.891 Personal history of nicotine dependence
CPT/HCPCS: 99212

== ENCOUNTER → 2023-07-18 | Outpatient (CLI) | payer MEDICARE ==
[2023-07-18 12:04] VITALS: BP 124/73; PULSE 80; RESP 16; TEMP 98.1
--- NOTE | 2023-07-18 12:24 | P.PROGSL ---
Subjective DATE: 07/18/2023 FOLLOW UP VISIT. Patient with obstructive sleep apnea hypopnea syndrome return to sleep center for follow-up visit. Information from previous visit have been reviewed. Patient is using PAP equipment every night for the whole night, getting PAP supplies in time. The patient does not have significant problems with the mask, PAP unit and humidification. [place] sleepiness scale is 4. I checked information from PAP unit. PAP unit pressure 8-17, average 9.9 cm H2O. Usage is 100% for more then 4 hours, average 7.8 hours per night. Leak is 4 l/m, which is in acceptable range. Apnea Hypopnea Index is 1.2, which is normal. MEDICATIONS: Please see below During physical exam: GENERAL: A pleasant patient without any distress. VITAL SIGNS: Please see below, weight 270.6 pounds. HEENT: PERRLA, EOMI.low position of soft palate, Mallapati 3-4. NECK: Supple. No JVD. LUNGS: Clear to percussion and to auscultation. Good air exchange. No wheezing or rhonchi. HEART: S1, S2 regular. ABDOMEN: Soft and nontender. Obese EXTREMITIES: No clubbing or cyanosis. BRANCH CHIEF: Awake, alert, and oriented x3. No focal deficit. Impressions: 1. Obstructive sleep apnea-hypopnea syndrome. Patient demonstrated great compliance with treatment, benefiting from treatment. 2. Obesity, patient lost 4 pounds comparing with previous visit. 3. History of atrial fibrillation. 4. Hypertension. 5. History of asthma. 6. History of pulmonary embolism. 7. Acid reflux. 8. Hyperlipidemia. 9. History of migraines. 10. Status post bilateral cataract surgery. 11. Status post hysterectomy. 12. Status post bilateral knee replacement. Plan: 1. Continue using PAP equipment every night for the whole night. 2. To change air filter at least 1-2 times per month. 3. PAP unit should stay lower then position of the head. 4. Advised patient to remove all remaining water from humidifier canister daily and make it dry after each usage. Refill canister with fresh distilled water before each usage. 5. Sleep hygiene with regular time in bed for at least 8 hours. 6. Precautions related to driving. No driving if feel any sleepiness. 7. I will maintain prescription for PAP supplies including mask, tube, filters. 8. Watching and continue losing weight. 9. Follow up visit in 6 months or earlier if patient has any problems. Thank you very much for allowing me to participate in the management of your patient. Vasquez Burden MD, PhD, FAASM. Diplomat of [place] [employer], Sleep Medicine Board by [place] Recreation Leader of [facility] [place] Objective - Vital Signs Vital Signs: Vital Signs Temp 98.1 F 07/18/23 12:00 Pulse 80 07/18/23 12:00 Resp 16 07/18/23 12:00 BP 124/73 07/18/23 12:00 Pulse Ox 95 07/18/23 12:00 FiO2 Intake & Output 07/17/23 07/18/23 07/18/23 18:59 06:59 18:59 Weight 122.487 kg Home Medications: Home Medications Medication Instructions Recorded Confirmed Type Ketotifen Fumarate [Zaditor] 1 drop BOTH EYES DAILY PRN 09/07/16 07/18/23 History Omeprazole 40 mg PO DAILY 09/07/16 07/18/23 History Risedronate Sodium [Actonel] 150 mg PO Q30D 09/07/16 07/18/23 History Simvastatin [Zocor] 10 mg PO DAILY 09/07/16 07/18/23 History Topiramate 50 mg PO BID 09/07/16 07/18/23 History Acetaminophen Tab [Tylenol] 1,000 mg PO Q6H PRN 09/26/21 02/14/22 History Aspirin/Acetaminophen/Caffeine 1 - 2 tab PO Q6H PRN 09/26/21 07/18/23 History [Excedrin Migraine Caplet] D-Methorphan/PE/Acetaminophen 1 cap PO Q6H PRN 09/26/21 02/14/22 History [Mucinex Fast-Max Congest-Head] metFORMIN HCL 1,000 mg PO DAILY 09/26/21 02/14/22 History Apixaban [Eliquis Starter Pack 5 mg PO BID 11/08/21 07/18/23 History (for VTE)] Celecoxib [CeleBREX] 200 mg PO DAILY 11/08/21 07/18/23 History Nystatin 1 applic TOPICAL BID PRN 11/08/21 02/09/22 History Albuterol Inhaler [Ventolin Hfa 1 - 2 puff INHALATION Q6H PRN 02/09/22 02/14/22 History Inhaler] Cetirizine HCl [Zyrtec] 10 mg PO HS 02/09/22 07/18/23 History Ascorbic Acid [Vitamin C] 500 mg PO DAILY 07/18/23 07/18/23 History Aspirin/Acetaminophen/Caffeine 1 each PO PRN 07/18/23 History [Excedrin Migraine Caplet] Losartan [Cozaar] 25 mg PO DAILY 07/18/23 07/18/23 History Lutein/Zeaxanthin 1 each PO DAILY 07/18/23 07/18/23 History [Lutein-Zeaxanthin 20-4 mg Softgel] Metoprolol Tartrate [Lopressor] 25 mg PO BID 07/18/23 07/18/23 History Propylene Glycol/Peg 400 [Systane 1 drop BOTH EYES PRN 07/18/23 History Ultra 0.4-0.3% Eye Drp] Tirzepatide [Mounjaro] 2.5 mg SQ WEEKLY 07/18/23 07/18/23 History
== END ==
LOC: 3 N SLEEP 11:33
PROVIDERS: ATTEND Internal Medicine
DX: G47.33 Obstructive sleep apnea (adult) (pediatric) (principal); E66.9 Obesity, unspecified; I10 Essential (primary) hypertension; K21.9 Gastro-esophageal reflux disease without esophagitis; E78.5 Hyperlipidemia, unspecified; I48.91 Unspecified atrial fibrillation; J45.909 Unspecified asthma, uncomplicated; Z86.69 Personal history of other diseases of the nervous system and sense organs; Z96.653 Presence of artificial knee joint, bilateral; Z98.41 Cataract extraction status, right eye; Z98.42 Cataract extraction status, left eye; Z90.710 Acquired absence of both cervix and uterus; Z99.89 Dependence on other enabling machines and devices; Z86.711 Personal history of pulmonary embolism; Z79.899 Other long term (current) drug therapy; Z68.42 Body mass index [BMI] 45.0-49.9, adult; Z87.891 Personal history of nicotine dependence; Z91.040 Latex allergy status; Z91.048 Other nonmedicinal substance allergy status; Z88.5 Allergy status to narcotic agent; Z88.2 Allergy status to sulfonamides; Z79.01 Long term (current) use of anticoagulants
CPT/HCPCS: 99212

== ENCOUNTER → 2023-08-06 | Outpatient (CLI) | payer MEDICARE ==
--- NOTE | 2023-08-07 18:03 | MM ---
Reason for Exam: Screening (asymptomatic). Last screening mammogram was performed 12 month(s) ago. Patient History: Menarche at age 11. First Full-Term at age 24. Left ovary removed at age 34. Right ovary removed at age 34. Hysterectomy at age 34. Postmenopausal. Estrogen for 20 years, 1 month. Cyst Aspiration on the Left side. Excisional Biopsy on the Right side. Risk Values: Krystyna 5 year model risk: 2.3%. NCI Lifetime model risk: 5.3%. Prior Study Comparison: 05/06/2020 Bilateral Screening Mammogram, [facility]. 07/13/2021 Bilateral MG 3D screening mammo w/cad, [facility]. 08/04/2022 Bilateral MG 3D screening mammo w/cad, [facility]. Tissue Density: There are scattered areas of fibroglandular density. Findings: Analyzed By CAD. Chronic nodularity on the left. There is no suspicious group of microcalcifications or new suspicious mass in either breast. Overall Assessment: Benign, BI-RAD 2 Management: Screening Mammogram of both breasts in 1 year. . Patient should continue monthly self-breast exams. A clinical breast exam by your physician is recommended on an annual basis. This exam should not preclude additional follow-up of suspicious palpable abnormalities. Note on Krystyna scores and lifetime risk: 1. A Krystyna score greater than 3% is considered moderate risk. If this is the case, consider specialist referral to assess eligibility for a risk reducing agent. 2. If overall lifetime risk for the development of breast cancer is 20% or higher, the patient may qualify for future screening with alternating mammogram and breast MRI. Electronically signed and approved by: Tre Mancilla M.D. Radiologist
== END | disposition home or self-care (01) ==
LOC: RADMAMWWP 08:11
PROVIDERS: ATTEND Family Medicine
DX: Z12.31 Encounter for screening mammogram for malignant neoplasm of breast (principal); Z78.0 Asymptomatic menopausal state
CPT/HCPCS: 77063; 77067

== ENCOUNTER 2023-08-20 06:02 | Day surgery (SDC) | payer MEDICARE ==
[~2023-08-20 06:02] MED LIST changes: -LACTATED RINGERS 1,000 ML IV SCH
[2023-08-20 06:35] VITALS: TEMP 97
[2023-08-20 06:45] LABS: Glucose,Whole Blood 102 mg/dL (70-110)
[2023-08-20] MEDS: SODIUM CHLORIDE 0.9% 500 ML DEHP FREE BAG IV STA (06:45)
[2023-08-20] MEDS: IV FLUID CONTINUATION 1,000 ML IV ONE ×2 (06:46→07:21)
[2023-08-20] MEDS: ONDANSETRON 4 MG/2 ML VIAL IVP STA (06:54)
[2023-08-20] MEDS ORDERED: PROPOFOL 10 MG/ML 20 ML VIAL IV ONE (07:08)
[2023-08-20 07:17] LABS: African American GFR (CKD) >90 (>60 ml/min/1.73 sqM); Anion Gap 6 mmol/L; Blood Urea Nitrogen 22 mg/dL (7-17); Calcium 9.6 mg/dL (8.4-10.2); Carbon Dioxide 26 mmol/L (22-30); Chloride 109 mmol/L (98-107); Glucose 99 mg/dL (74-99); Non-African American GFR(CKD) 88 (>60 ml/min/1.73 sqM); Sodium 141 mmol/L (137-145)
[2023-08-20 07:24] LABS: Potassium 4.6 mmol/L (3.5-5.1)
--- NOTE | 2023-08-20 08:09 | CE ---
CARDIAC ELECTROPHYSIOLOGY REPORT PROCEDURES PERFORMED: Electrical cardioversion. INDICATIONS: Persistent atrial fibrillation in spite of dronedarone and previous ablation for atrial fibrillation. CLINICAL INFORMATION: Ms. Cox is a 73-year-old obese lady with obstructive sleep apnea syndrome, also has history of pulmonary embolism in the past and also a persistent atrial fibrillation for which she had an ablation that was successful but she now has recurrent atrial fibrillation persistent. Advised electrical cardioversion after starting her on Multaq 400 mg b.i.d. for nearly a week or so. PROCEDURE NOTE: Under the influence of [id number] intravenous anesthetic agent with the attendance of the anesthesiologist, an initial shock of 120 joules was delivered in a synchronized fashion. Patient remained in atrial fibrillation. A repeat shock of 200 joules was delivered with anterior and posterior patches. She converted to sinus rhythm, remained hemodynamically stable and neurologically intact. This was a successful electrical cardioversion. The patient will be discharged later on today and I will see her in the office in a week as scheduled. She will have a snack or a meal and ambulate prior to discharge. Discussed the details with the patient as well as her son, Allen. MMEDWARDOL / LAURIEN: [id number] /
[2023-08-20 08:26] VITALS: BP 122/69; PULSE 50; RESP 16
== END 2023-08-20 08:45 | disposition home or self-care (01) ==
LOC: OR 06:02
PROVIDERS: ATTEND Internal Medicine Interventional Cardiology
DX: I48.11 Longstanding persistent atrial fibrillation (principal); G47.33 Obstructive sleep apnea (adult) (pediatric); I10 Essential (primary) hypertension; E11.69 Type 2 diabetes mellitus with other specified complication; E78.5 Hyperlipidemia, unspecified; M06.9 Rheumatoid arthritis, unspecified; Z87.891 Personal history of nicotine dependence; K21.9 Gastro-esophageal reflux disease without esophagitis; Z86.711 Personal history of pulmonary embolism; Z88.2 Allergy status to sulfonamides; Z88.5 Allergy status to narcotic agent; Z91.040 Latex allergy status; Z91.09 Other allergy status, other than to drugs and biological substances; Z79.899 Other long term (current) drug therapy; Z79.82 Long term (current) use of aspirin; Z79.01 Long term (current) use of anticoagulants
CPT/HCPCS: 92960; 80048; J2405; J2704

== ENCOUNTER → 2023-12-28 | Outpatient (CLI) | payer MEDICARE ==
[2023-12-28 15:11] LABS: Mean Platelet Volume 11.6 FL (9.5-12.2); NRBC Per 100 WBC 0 X 10*3/uL (0.00-0.01); Platelet Count 219 X 10*3/uL (140-440); RBC 4.33 X 10*6/uL (4.10-5.20); RDW 13.1 % (11.5-14.5); WBC 7.07 X 10*3/uL (4.50-10.00)
[2023-12-28 15:38] LABS: Blood Urea Nitrogen 19.3 mg/dL (9.0-27.0); Carbon Dioxide 25.7 mmol/L (21.6-31.8); Chloride 108 mmol/L (96-109); Potassium 4.3 mmol/L (3.5-5.5); Sodium 143 mmol/L (135-145)
== END | disposition home or self-care (01) ==
LOC: LABPAT 08:31
PROVIDERS: ATTEND Internal Medicine Clinical Cardiac Electrophysiology
DX: Z01.812 Encounter for preprocedural laboratory examination (principal); I48.19 Other persistent atrial fibrillation
CPT/HCPCS: 80051; 82565; 84520; 85027

== ENCOUNTER → 2024-01-02 | Outpatient (CLI) | payer MEDICARE ==
[2024-01-02 15:11] LABS: Basophils # (A) 0.05 X 10*3/uL (0.00-0.10); Basophils % (A) 0.7 %; Eosinophils # (A) 0.21 X 10*3/uL (0.04-0.35); Eosinophils % (A) 2.8 %; HCT 42.8 % (37.2-46.3); HGB 13.3 g/dL (12.0-15.0); Lymphocytes # (A) 2.78 X 10*3/uL (0.90-5.00); Lymphocytes % (A) 37.2 %; MCH 29.8 pg (27.0-32.0); MCHC 31.1 g/dL (32.0-37.0); Mean Platelet Volume 11.7 FL (9.5-12.2); Monocytes # (A) 0.42 X 10*3/uL (0.20-1.00); Monocytes % (A) 5.6 %; NRBC Per 100 WBC 0 X 10*3/uL (0.00-0.01); Neutrophils # (A) 3.99 X 10*3/uL (1.80-7.70); Neutrophils % (A) 53.3 %; Platelet Count 224 X 10*3/uL (140-440); RBC 4.46 X 10*6/uL (4.10-5.20); RDW 13.2 % (11.5-14.5); WBC 7.48 X 10*3/uL (4.50-10.00)
[2024-01-02 15:37] LABS: ALT 12 U/L (8-44); AST 18 U/L (13-35); Albumin 4.1 g/dL (3.8-4.9); Albumin/Globulin Ratio 1.71 Ratio (1.60-3.17); Alkaline Phosphatase 88 U/L (41-126); BUN/Creat Ratio 27.17 Ratio (12.00-20.00); Blood Urea Nitrogen 16.3 mg/dL (9.0-27.0); Calcium 9.4 mg/dL (8.7-10.3); Carbon Dioxide 26.2 mmol/L (21.6-31.8); Chloride 107 mmol/L (96-109); Chol/HDL Ratio 3.51 Ratio; Creatine Kinase 73 U/L (26-186); Globulin 2.4 g/dL (1.6-3.3); Glucose 88 mg/dL (70-110); LDL Cholesterol,Calculated 97.8 mg/dL (0.0-131.0); Potassium 4.3 mmol/L (3.5-5.5); Sodium 141 mmol/L (135-145); Total Bilirubin 0.3 mg/dL (0.3-1.2); Total Protein 6.5 g/dL (6.2-8.2)
== END | disposition home or self-care (01) ==
LOC: LABWHC1 09:20
PROVIDERS: ATTEND Family Medicine
DX: I10 Essential (primary) hypertension (principal); E78.5 Hyperlipidemia, unspecified
CPT/HCPCS: 36415; 80053; 80061; 82550; 85025

== ENCOUNTER 2024-01-07 12:23 | Day surgery (SDC) | payer MEDICARE ==
[2024-01-04 10:29] VITALS: BMI 48.4
[2024-01-07] MEDS: SODIUM CHLORIDE 0.9% 1,000 ML IV SCH (13:04)
[2024-01-07] MEDS: IV FLUID CONTINUATION 1,000 ML IV ONE (13:06)
[2024-01-07 13:08] LABS: Glucose,Whole Blood 91 mg/dL (70-110)
[2024-01-07] MEDS: HEPARIN SOD,PORK IN 0.45% NACL 25,000 UNIT in 0.45% NACL 1 250ML.BAG IV ONE (15:56)
[2024-01-07] MEDS: HEPARIN SODIUM (1,000 UNIT/ML) 1,000 UNIT in SODIUM CHLORIDE 0.9% 1,000 ML IRRIGATION ONE (15:57)
[2024-01-07] MEDS: LIDOCAINE 1% INJ 10MG/ML (20 ML MDV) SQ ONE (16:07)
[2024-01-07] MEDS: LACTATED RINGERS 1,000 ML IV ONE (17:47)
[2024-01-07] MEDS ORDERED: ACETAMINOPHEN TAB 325 MG TAB PO PRN (19:46)
--- NOTE | 2024-01-07 19:55 | P.EPPROC ---
- EP Procedure Note Electrophysiology Procedure Note: Diagnosis Persistent atrial fibrillation, refractory to therapy and amiodarone despite prior PVI and left atrial roof ablation last year Final diagnosis/treatment RF ablation left atrial roof, linear RF ablation left atrial septum, Linear RF ablation left atrial ridge/anterior david of the left-sided veins RF ablation of atrial tachycardia deep within the upper intra-atrial septum well above the limbus. Atrial septal tissue 9 mm thick on intracardiac echo. Refractory to RF ablation on account of the depth of the focus within the tissue Details Patient was brought to the EP lab in a fasting state. Written informed consent was obtained prior to the procedure. General anesthesia provided. Venous sheaths were placed in the right left femoral veins. Coronary sinus catheter was placed. Atrial fibrillation was documented. Intracardiac echo revealed absence of any intra atrial thrombus/left atrial appendage thrombus Long sheath placed in the right atrium. Transseptal catheterization performed. RA pressure 11/0/6 mmHg and LA pressure 13/2/8 mmHg Electrical cardioversion to sinus rhythm performed 3D electroanatomic mapping performed in sinus rhythm. Gaps noted in the left atrial roof. Gap noted in the anterior david of the left-sided veins near the ridge. RF ablation of the left atrial roof performed successfully RF ablation of the ridge anterior to the left-sided veins. Successful ablation performed. This line was then connected to the left atrial roofline Ablation of the left atrial septum performed posterior to the fossa ovalis. As the catheter was being withdrawn from the left atrium into the right atrium the patient went into an atrial tachycardia Right atrial mapping was performed. Left atrial mapping was performed. Activation mapping performed The activation map revealed the earliest site was in the left atrium. However at this earliest site the earliest bipolar electrogram did not precede the P wave. Unipolar electrograms had a tiny R wave at the onset This is consistent with a deep focus. This earliest site in the left atrium was localized to the upper intra-atrial septum which is a very thick portion, 9 mm in thickness The right atrium was also mapped along the septum and the bipolar electrograms at earliest site once again did not proceed the P wave RF ablation was performed from the right atrium and then subsequently from the left atrium The tachycardia cycle length increased from 400 ms to 450 ms but it could not be eliminated since this was deep within the thick portion of the upper intra- atrial septum, well above the limbus of the fossa ovalis The coronary cusps were mapped and the not in the vicinity of this early focus. This was NOT a noncoronary cusp atrial tachycardia Electrical cardioversion was then once again performed to sinus rhythm. However the tachycardia recurred spontaneously and a bolus dose of IV amiodarone was given Plan Patient has normal LV function and mild coronary artery disease I will treat her with a higher dose of beta-blockers and oral flecainide for suppression of this deep intra-atrial septal focus
--- NOTE | 2024-01-07 20:03 | P.HPCAR ---
History of Present Illness This is Dr. Burton dictating an H/P on this patient The patient was interviewed and examined IMPRESSION / ASSESSMENT: Persistent atrial fibrillation despite prior A-fib ablation with PVI and left atrial roof ablation Shortness of breath on exertion Pulmonary embolism on Eliquis now mild CAD Failed amiodarone Hypertension Obstructive sleep apnea Type 2 diabetes PLAN: EP study atrial fibrillation Continue anticoagulation HPI Patient remains short of breath on exertion despite rate control of atrial fibrillation Blood pressure is well-controlled LV function is normal 6 months back she had pulmonary embolism but this has been treated for the last 6 months now ROS: No fever chills or rigors, no cough, phlegm or expectoration, no nausea, vomiting or diarrhea, no hematuria, dysuria, no musculoskeletal complaints, no strokes or seizures, no skin lesions. EXAMINATION: Heart sounds are irregular but rates are controlled Blood pressure is normal Heart sounds no murmurs no gallop no rub Breath sounds are clear No lower extremity edema REVIEW OF LABS, ECG & MEDICAL DATA On Eliquis Normal TSH Physical Exam Vitals: Vital Signs Temp Pulse Resp BP Pulse Ox 01/07/24 13:04 98.9 F 125 H 18 145/98 98 Intake and Output 01/07/24 01/07/24 01/07/24 06:59 14:59 22:59 Intake Total 100 2307 Balance 100 2307 Intake: IV 100 2307 Other: Weight 118.9 kg Past Medical History Past Medical History: Atrial Fibrillation, Asthma, Diabetes Mellitus, GERD/Reflux, Hyperlipidemia, Hypertension, Osteoarthritis (OA), Pulmonary Embolus (PE), Rheumatoid Arthritis (RA) Additional Past Medical History / Comment(s): See Dr Burton's H&P. IRREGULAR HEARTBEAT, hx PE September 2020, migraines. Current topical yeast infection in groin area. History of Any Multi-Drug Resistant Organisms: None Reported Past Surgical History: Cholecystectomy, Heart Catheterization, Hysterectomy, Joint Replacement, Tonsillectomy Additional Past Surgical History / Comment(s): Bilateral knee replacements. Past Anesthesia/Blood Transfusion Reactions: Previous Problems w/ Anesthesia, Motion Sickness, Postoperative Nausea & Vomiting (PONV) Additional Past Anesthesia/Blood Transfusion Reaction / Comment(s): Passed out first time got up after one of her knee replacements. Had to have NG tube after gallbladder surgery or hysterectomy cannot recall which one. Smoking Status: Former smoker - Past Family History Mother History Unknown: Yes Family Medical History: Cancer, Memory Impairment Additional Family Medical History / Comment(s): Mom from cancer and alzheimers. Physical Examination Vital Signs Temp Pulse Resp BP Pulse Ox 01/07/24 13:04 98.9 F 125 H 18 145/98 98 Intake and Output 01/07/24 01/07/24 01/07/24 06:59 14:59 22:59 Intake Total 100 2307 Balance 100 2307 Intake: IV 100 2307 Other: Weight 118.9 kg Results Current Medications Generic Name Dose Route Start Last Admin Trade Name Freq PRN Reason Stop Dose Admin Acetaminophen 650 mg 01/07/24 19:46 Acetaminophen Tab 325 Mg Tab PO 02/06/24 19:45 Q6HR PRN Mild Pain (Scale 1 to 3) Apixaban 5 mg 01/07/24 21:00 Apixaban 5 Mg Tab PO 02/06/24 20:59 BID DONAVON Protocol Atorvastatin Calcium 10 mg 01/08/24 09:00 Atorvastatin 10 Mg Tab PO 02/07/24 08:59 DAILY DONAVON Flecainide Acetate 100 mg 01/07/24 21:00 Flecainide 50 Mg Tab PO 02/06/24 20:59 Q12HR DONAVON Acetaminophen 1,000 mg/ IV 100 mls @ 400 mls/hr 01/07/24 19:46 Solution IVPB 01/07/24 20:00 ONCE ONE Losartan Potassium 25 mg 01/07/24 21:00 Losartan 25 Mg Tab PO 02/06/24 20:59 HS DONAVON Metoprolol Tartrate 50 mg 01/07/24 22:00 Metoprolol Tartrate 50 Mg Tab PO 02/06/24 21:59 TID DONAVON Sodium Chloride 12 ml 01/07/24 19:46 Sodium Chloride 0.9% Flush 10 Ml Syringe IV 02/06/24 19:45 Q12HR PRN Line Flush Intake and Output 01/07/24 01/07/24 01/07/24 06:59 14:59 22:59 Intake Total 100 2307 Balance 100 2307 Intake: IV 100 2307 Other: Weight 118.9 kg Patient Weight 01/08/24 06:59 Weight 118.9 kg
--- NOTE | 2024-01-07 20:05 | P.EPPROC ---
- EP Procedure Note Electrophysiology Procedure Note: Increase procedure duration/extended services Patient had refractory atrial tachycardia that was finally localized to the upper, deep intra-atrial septum well above the limbus of the fossa ovalis The right atrium and the left atrium were mapped in detail RF ablation was applied from both sides but there was only a mild increase in the cycle length of 450 ms from the baseline of 400 ms The tachycardia could not be eliminated on account of its deep location within the interatrial septum Mapping and ablation of this tachycardia took an extended duration Extended duration ablation was performed broadly around the earliest site of activation but without success Plan treat this focal refractory area deep within the intra-atrial septum, with antiarrhythmic drugs Continue anticoagulation
[2024-01-07 20:35] VITALS: RESP 18
[2024-01-07] MEDS: ONDANSETRON 4 MG/2 ML VIAL IVP PRN (20:36)
[2024-01-07 20:40] LABS: Glucose,Whole Blood 153 mg/dL (70-110)
[2024-01-07] MEDS: LOSARTAN 25 MG TAB PO SCH (21:24)
[2024-01-07] MEDS: METOPROLOL TARTRATE 50 MG TAB PO SCH (21:24)
[2024-01-07] MEDS: APIXABAN 5 MG TAB PO SCH (21:24)
[2024-01-07] MEDS: FLECAINIDE 50 MG TAB PO SCH (21:25)
[2024-01-08] MEDS: ACETAMINOPHEN IV (For NPO) 1,000 MG in EMPTY BAG 1 BAG IVPB ONE (01:07)
[2024-01-08 06:21] LABS: Glucose,Whole Blood 120 mg/dL (70-110)
[2024-01-08] MEDS: LACTATED RINGERS 1,000 ML IV SCH (08:43)
[2024-01-08] MEDS ORDERED: ATORVASTATIN 10 MG TAB PO SCH ×2 (09:00→21:00)
[2024-01-08 10:47] VITALS: TEMP 98.3
[2024-01-08 11:36] LABS: Glucose,Whole Blood 99 mg/dL (70-110)
[2024-01-08 14:41] VITALS: BP 96/61; PULSE 60
[2024-01-08] MEDS ORDERED: METOPROLOL TARTRATE 25 MG TAB PO SCH (21:00)
== END 2024-01-08 15:47 | disposition home or self-care (01) ==
LOC: CATHEP 12:23 → 3SCARD 19:20 → CATHEP 01-08 15:47
PROVIDERS: ATTEND Internal Medicine Clinical Cardiac Electrophysiology
DX: I48.19 Other persistent atrial fibrillation (principal); I47.19 Other supraventricular tachycardia; I26.99 Other pulmonary embolism without acute cor pulmonale; I25.10 Atherosclerotic heart disease of native coronary artery without angina pectoris; I10 Essential (primary) hypertension; G47.33 Obstructive sleep apnea (adult) (pediatric); J45.909 Unspecified asthma, uncomplicated; M06.9 Rheumatoid arthritis, unspecified; K21.9 Gastro-esophageal reflux disease without esophagitis; E78.5 Hyperlipidemia, unspecified; E11.9 Type 2 diabetes mellitus without complications; Z79.01 Long term (current) use of anticoagulants; Z86.711 Personal history of pulmonary embolism; Z87.891 Personal history of nicotine dependence; Z90.49 Acquired absence of other specified parts of digestive tract; Z90.710 Acquired absence of both cervix and uterus; Z96.653 Presence of artificial knee joint, bilateral
CPT/HCPCS: 92960; 93655; 93656; 86900; 86901; 84443; 86850; J2405; J2003; J1644 ×2